=== PATIENT | female | born 1970 | race Caucasian/White ===

== ENCOUNTER 2024-01-04 12:13 | Emergency (ER) | payer OTHER, BC, SELFPAY ==
[2024-01-04 12:20] VITALS: BP 126/91
--- NOTE | 2024-01-04 12:38 | ED.GENMED ---
History of Present Illness
General
Chief Complaint: Fall
Source: patient
Time Seen by Provider: 01/04/24 12:28
History of Present Illness
History of Present Illness:
53yoF with a history of hypertension, hyperlipidemia, and thoracic aortic aneurysm being monitored presenting for evaluation after a head injury 3 days ago. Patient was walking her dog when her dog pulled her causing her to fall forward. She struck
her head against the road. She is unsure if she lost consciousness. Patient had a nose bleed afterwards that self resolved. She had vomiting immediately after the incident but has not had any further vomiting in the past 2 days. She reports ongoing
headaches, photophobia, trouble focusing, and overall 'not feeling right.' She has been taking Tylenol for her headaches and her headache is currently a 3/10 in severity. She also has right hand pain. She denies any history of head injuries in the
past.
Past History
Past History
ED Past Medical History: Psychiatric and Other (Aortic regurgitation, rheumatoid arthritis, thoracic aortic aneurym 4.5 cm)
ED Past Surgical History: None
Social History
Tobacco: Non-smoker
Personal:
Living: with family
Employment: Employed
Phy Exam
Physical Exam
Physical Exam:
Mild abrasion to bridge of nose. No epistaxis or septal hematoma. No nasal or facial tenderness. No external signs of head trauma. No cervical spine tenderness with full ROM. Multiple abrasions of R hand/wrist noted. ROM intact. No deformity. No
snuffbox tenderness. 2+ radial pulse.
General Physical Exam
General Presentation: well appearing and no apparent distress
General age: appears stated age
General Skin: warm and dry
General Habitus: normal
General Mental: alert
Eye Exam
Eye Exam: PERRL
Cardiovascular Exam
Cardiovascular Exam: regular rate/rhythm and no murmur
Pulmonary Exam
Pulmonary Exam: lungs clear, no respiratory distress, no crackles and no wheezing
Gastrointestinal Exam
Gastrointestinal Exam: non tender, soft and non distended
Neurological Exam
Neurological Exam: alert and no motor deficits
[place] Coma Scale
Eye Opening: Spontaneous
Verbal Response: Oriented
Motor Response: Obeys Commands
GCS Total Score: 15
Course
Orders/Labs/Results
Orders:
Orders
01/04/24 12:37
CT Head W/o Iv Contrast Urgent
Comment:
Reason For Exam: Fall with head strike, unknown LOC
Tetanus/Diphth/Acelpertussis [Adacel] 0.5 ml IM .ONCE ONE
Hand, Right 3 View [CR Hand - Right Min 3 Views] Urgent
Comment:
Reason For Exam: R hand pain, injury
Wrist, Right 3 Views [CR Wrist - Right Min 3 Views] Urgent
Comment:
Reason For Exam: R wrist pain, injury
Vital Signs
Initial and Last Documented VS:
Initial Vital Signs
Temp Pulse Resp BP Pulse Ox
98.8 F 98 16 126/91 96
01/04/24 12:20 01/04/24 12:20 01/04/24 12:20 01/04/24 12:20 01/04/24 12:20
Last Documented Vital Signs
Temp Pulse Resp BP Pulse Ox
98.8 F 98 16 126/91 96
01/04/24 12:20 01/04/24 12:20 01/04/24 12:20 01/04/24 12:20 01/04/24 12:20
MDM/Problems Addressed
Differential Diagnosis Includes:
53yoF presenting after a head injury 3 days ago after a mechanical fall. Unknown LOC. C/o ongoing headaches, fatigue, difficulty focusing. Also having R hand pain. She is afebrile and hemodynamically stable. She is well appearing in no distress.
There is a minor abrasion to the bridge of her nose but otherwise no external signs of head trauma. Cervical spine cleared via NEXUS criteria. R hand abrasions noted. Differential diagnosis includes but is not limited to: closed head injury,
concussion, intracranial hemorrhage, skull fracture
Initial ED plan: Check right hand/wrist x-rays and CT head. Update Tdap.
*Critical Care Note
Total Time (30-74mins, 75-104mins- exclusive of procedures): Not Applicable
Update Note
Update Note:
CT head is negative for acute findings. Right hand and wrist x-rays are also negative. Patient stable for discharge. Supportive care discussed including hydration, rest, and avoidance of electronics. Advised f/u with PCP. ED return precautions
discussed. Patient discharged in stable condition.
ED Attending Note
-
Portions of this chart may have been created with voice recognition software.� Occasional wrong word or��sound alike� substitutions may have occurred due to the inherent limitations of voice recognition software.
Discharge Plan
Departure
Patient Disposition: Home (Routine Discharge)
Date of Disposition: 01/04/24
Time of Disposition: 14:01
Patient with high blood pressure during this ER visit?: No
Discharge Problem:
Closed head injury, Hand pain, right, Abrasions of multiple sites
Instructions: Concussion, Adult (DC)
Prescriptions:
No Action
atorvastatin 10 mg Tablet
10 mg PO DAILY
levothyroxine 50 mcg Tablet
50 mcg PO HS
losartan 25 mg Tablet
25 mg PO DAILY
acetaminophen [Tylenol] 325 mg Tablet
650 mg PO Q6H PRN (Reason: mild pain)
Fleet Enema 19-7 gram/118 mL Enema
[address] DAILY PRN (Reason: constipation)
Menopause Supplement 400 mcg Tablet
1 tab PO DAILY
Referrals:
Amalia Starks PA-C [Family Provider] -
Activity Restrictions/Additional Instructions:
Drink plenty of fluids and rest. Avoid electronics. Take Tylenol as needed for headaches.
Please follow-up with your family doctor. Return to the ER with any new or worsening symptoms.
Interventions
Interventions:
*Risk Screen - Suicide Last Done: 01/04/24 12:20
*General Assessment Last Done: 01/04/24 12:20
*Neglect/Abuse Screening Last Done: 01/04/24 12:20
*ED COVID-19 Vaccine History Last Done: 01/04/24 12:20
ED-Musculoskeletal Assessment Last Done: 01/04/24 13:06
ED- Neurological Assessment Last Done: 01/04/24 13:04
Discharge Date and Time
Print Language: ANDORRAN
[2024-01-04 13:04] VITALS: BMI 24.2
[2024-01-04] MEDS: ADACEL 0.5 ML IM (14:41)
[2024-01-04 15:30] VITALS: BP 113/71
== END 2024-01-04 16:14 | disposition home or self-care (01) ==
LOC: EMR 12:13
PROVIDERS: EMERGENCY PHYSICIAN Emergency Medicine; FAMILY PHYSICIAN Physician Assistant Medical
DX: S09.90XA Unspecified injury of head, initial encounter (principal); S00.31XA Abrasion of nose, initial encounter; M79.641 Pain in right hand; W19.XXXA Unspecified fall, initial encounter; Y93.K1 Activity, walking an animal; Z23 Encounter for immunization; M06.9 Rheumatoid arthritis, unspecified; E78.00 Pure hypercholesterolemia, unspecified; I10 Essential (primary) hypertension; Z86.79 Personal history of other diseases of the circulatory system
CPT/HCPCS: 99284; 90471; 70450; 73110; 73130; 90715

== ENCOUNTER 2024-03-15 09:15 | Emergency (ER) | payer OTHER, BC, SELFPAY ==
[2024-03-15 09:17] VITALS: BP 144/88
--- NOTE | 2024-03-15 09:42 | ED.GENMED ---
History of Present Illness
General
Chief Complaint: Rectal Bleeding
Source: patient
Time Seen by Provider: 03/15/24 09:25
History of Present Illness
History of Present Illness:
53-year-old female with past medical history of thoracic aortic aneurysm presenting to the emergency department for evaluation after awakening around 1 AM with nausea and vomiting as well as diarrhea, noticed some small blood in her stool, woke up
again around 7 AM with continued lower abdominal cramping and went to bathroom again and noticed bright red blood within the toilet with no other stool. Patient states that present time she just feels very shaky but otherwise the abdominal
pain/cramping and nausea have subsided. Patient denies any fevers, chills, rigors. She notes that eat anything out of the ordinary yesterday, denies any recent travel or known sick contacts. Denies any history of similar. Has never had
colonoscopy. No family history of GI related medical history or cancers.
Past History
Past History
ED Past Medical History: Psychiatric and Other (Aortic regurgitation, rheumatoid arthritis, thoracic aortic aneurym 4.5 cm)
ED Past Surgical History: None
Social History
Tobacco: Non-smoker
Alcohol: Daily (2 whiskey drinks daily)
Drug: None
Personal:
Living: with family
Employment: Employed
Review of Systems
Review of Systems
All Other Systems: ROS reviewed and negative except as documented in HPI and ROS
Phy Exam
Physical Exam
Physical Exam:
GENERAL: Alert , in no apparent distress
EYE: clear conjunctiva b/l
HEAD: NCAT
ENT: mmm.
CARDIAC: Regular rate and rhythm .
LUNGS: Clear breath sounds bilaterally, no acute respiratory distress, no wheezes/rales/rhonchi
ABDOMEN: Soft, without focal tenderness, no r/g, no cvat
RECTAL: Chaperoned by ED RN Carly, light brown stool, small streak of blood on glove, no external hemorrhoids appreciated
NEUROLOGICAL: Alert and oriented
SKIN: Warm and dry, skin intact.
MUSCULOSKELETAL: well perfused.
PSYCH: Normal and appropriate interaction.
Scores
Heart Failure Risk
Heart Failure Risk Score: Not Applicable
Heart Score for Chest Pain Patients
STEMI patient?: Not applicable
Withdrawal Assessment of Alcohol
Withdrawal Assessment Completed?: Not applicable
Course
Orders/Labs/Results
Orders:
Orders
03/15/24 09:40
CT Abd/pel W Iv And Oral Contr Urgent
Comment:
Reason For Exam: lower abd pain, hematochezia
Iohexol [Omnipaque] See Protocol PO NOW STA
03/15/24 09:53
Type+Screen Urgent
Complete Blood Count/With Diff Urgent
Comprehensive Metabolic Panel Urgent
Lipase Urgent
03/15/24 09:54
0.9% Sodium Chloride 1000 ml [Nss] 1,000 ml IV BOLUS
Ondansetron Injectable [Zofran] 4 mg IV NOW STA
03/15/24 09:55
Ondansetron Injectable [Zofran] 4 mg .ROUTE .STK-MED ONE
Abnormal Lab Results
03/15/24
09:53
RBC 3.27 L 10^6/uL
(4.20-5.40)
Hgb 11.8 L g/dL
(12.0-16.0)
Hct 33.3 L %
(37.0-47.0)
MCV 101.8 H fL
(81.0-99.0)
MCH 36.1 H pg
(27.0-31.0)
Absolute Lymphs (auto) 0.8 L 10^3/uL
(1.2-3.4)
Neutrophils % 83.0 H %
(42.2-75.2)
Lymphocytes % 10.3 L %
(20.5-51.1)
Potassium 3.4 L mmol/L
(3.5-5.1)
Chloride 94 L mmol/L
(98-107)
AST 128 H U/L
(14-36)
ALT 121 H U/L
(0-35)
03/15/24 09:53
03/15/24 09:53
Vital Signs
Initial and Last Documented VS:
Initial Vital Signs
Temp Pulse Resp BP Pulse Ox
98.6 F 94 16 144/88 98
03/15/24 09:17 03/15/24 09:17 03/15/24 09:17 03/15/24 09:17 03/15/24 09:17
Last Documented Vital Signs
Temp Pulse Resp BP Pulse Ox
98.6 F 94 16 144/88 98
03/15/24 09:17 03/15/24 09:17 03/15/24 09:17 03/15/24 09:17 03/15/24 09:17
MDM/Problems Addressed
Differential Diagnosis Includes:
hemorrhoidal bleeding, diverticular bleed, malignancy, infectious diarrhea
MDM/Problems Addressed:
3-year-old female presenting to the emergency department for evaluation of hematochezia. Initially this morning had lower abdominal cramping with nausea and vomiting as well however the symptoms have since subsided. Patient's abdominal exam
reassuring. Rectal exam shows small light brown stool with a streak of blood on glove. I suspect hemorrhoidal bleeding is the most likely cause. Patient notes that since she had a concussion a few months ago she has also noticed some constipation
and will often strain while having bowel movement. I do suspect a little bleeding is the most likely diagnosis. Patient has never had colonoscopy or abdominal imaging so will obtain CT scan to evaluate for possible diverticulum. Patient does have
2 alcoholic beverages daily but I doubt upper GI bleeding. Denies frequent NSAID use. Patient is otherwise hemodynamically stable. Labs and CT imaging ordered. Reassessment following.
*Radiology
Radiology exam reviewed: radiology read reviewed
*Pulse Oximetry
Patient hypoxic: no
*Critical Care Note
Total Time (30-74mins, 75-104mins- exclusive of procedures): Not Applicable
Patient Management
Escalation/DeEscalation of care consider admission/obs:
Patient CT scan shows questionable colitis. She is afebrile, no leukocytosis and pain is well-controlled. I still question possibility of internal hemorrhoidal bleeding. Patient strongly encouraged to make appointment with GI and I provided
information for the patient to contact. Advised on return precautions to the ER. Patient will also follow-up with primary care provider. Stable for discharge home and aware of return precautions.
ED Attending Note
-
Portions of this chart may have been created with voice recognition software.� Occasional wrong word or��sound alike� substitutions may have occurred due to the inherent limitations of voice recognition software.
Discharge Plan
Departure
Patient Disposition: Home (Routine Discharge)
Date of Disposition: 03/15/24
Time of Disposition: 12:45
Patient with high blood pressure during this ER visit?: Yes
Discharge Problem:
Abdominal pain, GI bleeding
Instructions: Hemorrhoids (DC)
Prescriptions:
New
ondansetron 4 mg tablet,disintegrating
4 mg PO TIDPRN PRN (Reason: nausea/vomiting) Qty: 8 0RF
hydrocortisone acetate [Anusol-HC] 25 mg suppository
25 mg NC DAILY Qty: 24 0RF
No Action
atorvastatin 10 mg Tablet
10 mg PO DAILY
losartan 25 mg Tablet
25 mg PO DAILY
acetaminophen [Tylenol] 325 mg Tablet
650 mg PO Q6HPRN PRN (Reason: headachs)
bisacodyl [Fleet Bisacodyl] 10 mg Suppository
10 mg NC DAILYPRN PRN (Reason: constipation)
hydrochlorothiazide 12.5 mg Tablet
12.5 mg PO DAILY
Referrals:
Roddy Arvizu MD [Family Provider] -
Latisha Weaver MD [Active] - (GI - Please call for appointment)
Interventions
Interventions:
*Risk Screen - Suicide Last Done: 03/15/24 09:17
*General Assessment Last Done: 03/15/24 10:05
*Neglect/Abuse Screening Last Done: 03/15/24 09:17
*ED COVID-19 Vaccine History Last Done: 03/15/24 10:05
*Nursing Disposition Last Done: 03/15/24 12:53
IB-Ubcaxb-Hkawvtpyeu Assessment Last Done: 03/15/24 10:05
ED- Cardiac Assessment Last Done: 03/15/24 10:05
ED- Pulmonary Assessment Last Done: 03/15/24 10:05
Discharge Date and Time
Discharge Date/Time: 03/15/24 12:54
Print Language: DOMINICAN
[2024-03-15] MEDS: OMNIPAQUE 50 ML PO (09:48)
[2024-03-15] MEDS: ZOFRAN 4 MG IV (09:56)
[2024-03-15] MEDS: NSS 1000 IV (09:57)
[2024-03-15 10:02] VITALS: BMI 23.5
[2024-03-15 10:03] LABS: % Basophils 0.9 % (0-2); % Eosinophils 0.1 % (0-6); % Immature Granulocytes 0.4 % (0-0.5); % Lymphocytes 10.3 % (20.5-51.1); % Monocytes 5.3 % (1.7-9.3); Absolute Basophils 0.1 10^3/uL (0-0.2); Absolute Lymphocytes 0.8 10^3/uL (1.2-3.4); Absolute Monocytes 0.4 10^3/uL (0.1-0.6); Absolute Neutrophils 6.3 10^3/uL (1.4-6.5); Hematocrit 33.3 % (37.0-47.0); Hemoglobin 11.8 g/dL (12.0-16.0); Mean Corp Hgb Conc. 35.4 g/dL (33.0-37.0); Mean Corpuscular Hgb 36.1 pg (27.0-31.0); Mean Corpuscular Volume 101.8 fL (81.0-99.0); Nucleated Red Blood Cells % 0 %; Platelet Count 201 10^3/uL (130-400); Red Blood Cell Count 3.27 10^6/uL (4.20-5.40); White Blood Cell Count 7.6 10^3/uL (4.8-10.8)
[2024-03-15 10:20] LABS: ALT (SGPT) 121 U/L (0-35); AST (SGOT) 128 U/L (14-36); Albumin 4.5 g/dl (3.5-5.0); Alkaline Phosphatase 91 U/L (38-126); Blood Urea Nitrogen 12 mg/dl (7-17); Calcium 9.1 mg/dl (8.4-10.2); Carbon Dioxide 23 mmol/L (22-30); Chloride 94 mmol/L (98-107); Estimated Creatinine Clearance 90 ml/min; Glucose 78 mg/dl (70-99); Potassium 3.4 mmol/L (3.5-5.1); Sodium 138 mmol/L (135-145); Total Bilirubin 1.1 mg/dl (0.2-1.3); Total Protein 7.1 g/dl (6.3-8.2); eGFR > 60.00
[2024-03-15 11:07] LABS: Lipase 94 U/L (23-300)
== END 2024-03-15 12:54 | disposition home or self-care (01) ==
LOC: EMR 09:15
PROVIDERS: Physician Assistant Medical; EMERGENCY PHYSICIAN Emergency Medicine; FAMILY PHYSICIAN Internal Medicine
DX: R10.9 Unspecified abdominal pain (principal); K92.2 Gastrointestinal hemorrhage, unspecified; I35.1 Nonrheumatic aortic (valve) insufficiency; M06.9 Rheumatoid arthritis, unspecified
CPT/HCPCS: 99284; 96374; 96361; 74177; 80053; 83690; 85025; 86850; 86900; 86901; Q9967

== ENCOUNTER 2024-05-09 22:31 | Observation (INO) | payer BC, SELFPAY ==
[2024-05-09 18:02] VITALS: BP 129/78
[2024-05-09 18:44] VITALS: BP 128/91
[2024-05-09 19:00] VITALS: BP 113/77
[2024-05-09 19:07] LABS: ALT (SGPT) 108 U/L (0-35); AST (SGOT) 271 U/L (14-36); Albumin 4.5 g/dl (3.5-5.0); Alkaline Phosphatase 104 U/L (38-126); Blood Urea Nitrogen 11 mg/dl (7-17); Calcium 8.6 mg/dl (8.4-10.2); Carbon Dioxide 32 mmol/L (22-30); Chloride 87 mmol/L (98-107); Glucose 109 mg/dl (70-99); Sodium 133 mmol/L (135-145); Total Bilirubin 1.1 mg/dl (0.2-1.3); Total Protein 7.6 g/dl (6.3-8.2); eGFR > 60.00
--- NOTE | 2024-05-09 19:07 | ED.GENMED ---
History of Present Illness
<Aury Bailey PA-C - Last Filed: 05/09/24 22:31>
General
Chief Complaint: Abdominal Symptoms
Source: patient
Exam Limitations: none
Time Seen by Provider: 05/09/24 18:21
Nursing documentation reviewed up to this point in time: agreed with
History of Present Illness
History of Present Illness:
Patient is a 53-year-old female with history of thoracic aortic aneurysm, hypertension, hyperlipidemia presenting to the emergency department with 12 days of nausea, vomiting, diarrhea. 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
similar symptoms. Patient reports diarrhea has somewhat slowed down although nausea and vomiting have persisted. Patient does report abdominal discomfort worse after eating.
Patient denies any fever, chills, chest pain, shortness of breath, urinary symptoms.
Patient was given Zofran by her family doctor although she states that it makes her feel 'weird '
Patient followed by Dr. Arvizu with [facility] cardiology with frequent monitoring of thoracic aortic aneurysm.
Past History
<Aury Bailey PA-C - Last Filed: 05/09/24 22:31>
Past History
ED Past Medical History: Psychiatric and Other (Aortic regurgitation, rheumatoid arthritis, thoracic aortic aneurym 4.5 cm)
ED Past Surgical History: None
Social History
Tobacco: Non-smoker
Alcohol: Daily (2 whiskey drinks daily)
Drug: None
Personal:
Living: with family
Employment: Employed
Review of Systems
<Aury Bailey PA-C - Last Filed: 05/09/24 22:31>
Review of Systems
Allergies reviewed?: Yes
All Other Systems: ROS reviewed and negative except as documented in HPI and ROS
Phy Exam
<Aury Bailey PA-C - Last Filed: 05/09/24 22:31>
Physical Exam
Physical Exam:
Vitals: Patient's vital signs are stable. Afebrile
General: Patient is well appearing, no acute distress. Nontoxic appearing
Skin: Warm and dry, no rashes or lesions
Head: Normocephalic, atraumatic
Eyes: Sclera nonicteric. EOMs intact. No nystagmus.
Throat: Dry mucous membranes. Protecting airway
Neck: Normal ROM, no cervical spine tenderness, no meningismus
Cardiac: Regular rate and rhythm, no murmurs. Equal distal pulses.
Pulm: Normal respiratory effort, no wheezes, rales, rhonchi heard on exam.
Abdomen: Abdomen soft. Mild right upper quadrant abdominal tenderness without rebound tenderness or guarding. No CVA tenderness.
Extremities: No evidence of cyanosis or edema. Palpable DP pulses bilaterally
Neuro: AAOx3. Grossly intact.
Psychiatric: Normal affect.
Course
<Aury Bailey PA-C - Last Filed: 05/09/24 22:31>
Orders/Labs/Results
Orders:
Orders
05/09/24 18:41
CBC/With Diff [Complete Blood Count/With Diff] Urgent
CMP [Comprehensive Metabolic Panel] Urgent
Lipase Urgent
Comment: ADD ON
Urinalysis Reflex To Culture Urgent
Date Specimen was Collected: 05/09/24
Time Specimen was Collected: 18:32
Urine Microscopic Reflex Cult Urgent
05/09/24 18:53
Add On- LAB Urgent
Tests Added?: lipase
05/09/24 18:58
0.9% Sodium Chloride 1000 ml [Nss] 1,000 ml IV BOLUS
Ondansetron Injectable [Zofran] 4 mg IV NOW STA
US Abdomen Complete/Upper Urgent
Comment:
Reason For Exam: Nasuea, vomiting, RUQ tenderness
05/09/24 20:02
Potassium Chloride [KCl] 40 meq PO NOW STA
05/09/24 21:29
Stool Culture Urgent
KAYLI Source: Feces/Stool
Specimen Description:
Date Specimen was Collected: 05/09/24
Time Specimen was Collected: 21:26
05/09/24 21:55
Pantoprazole [Protonix IV] 80 mg IV NOW STA
Sucralfate [Carafate] 1 gram PO NOW STA
05/09/24 22:00
Pantoprazole 80 mg/100 ml Nss [Protonix] 80 mg in 100 ml IV Q10H
05/09/24 22:20
Add On - Microbiology Routine
Tests Added?: stool norovirus
05/09/24 22:21
Add On- LAB Routine
Tests Added?: stool wbc
Admit/Transfer Patient As Directed
Co-Sign Provider:
Level of Care: Observation services
Assign to:: Medical/Surgical
Physician / Group: Rody
Diagnosis: Gastroenteritis
05/09/24 22:22
Sucralfate Suspension [Carafate Suspension] 1 gm PO NOW STA
PRN Pain Medication Management As Directed
May give lesser potent ordered pain med per pt: Yes
preference::
Protocol:: Medication orders for pain may be administered in a
manner that supports deferring to patient preference
when the pt is:
- Requesting an ordered lesser potent pain medication.
Least to most potent pain medications are defined
as: acetaminophen < NSAID < tramadol < opioids
(morphine, oxycodone, hydromorphone).
- Requesting a lesser dose of the same medication IF
ORDERED.
- Requesting a less intrusive route of administration
if both routes are prescribed by the provider (PO <
IV).
05/09/24 22:23
Code Status As Directed
Resuscitation Status: Full Code
05/09/24 23:52
Ondansetron Injectable [Zofran] 4 mg IV Q6HPRN PRN
Abnormal Lab Results
05/09/24
18:41
WBC 4.0 L 10^3/uL
(4.8-10.8)
RBC 3.68 L 10^6/uL
(4.20-5.40)
Hct 35.6 L %
(37.0-47.0)
MCH 35.6 H pg
(27.0-31.0)
Sodium 133 L mmol/L
(135-145)
Potassium 3.0 L mmol/L
(3.5-5.1)
Chloride 87 L mmol/L
(98-107)
Carbon Dioxide 32 H mmol/L
(22-30)
Glucose 109 H mg/dl
(70-99)
AST 271 H U/L
(14-36)
ALT 108 H U/L
(0-35)
Ur Occult Blood Reflex 1+ A
(Negative)
05/09/24 18:41
05/09/24 18:41
Vital Signs
Initial and Last Documented VS:
Initial Vital Signs
Temp Pulse Resp BP Pulse Ox
98.4 F 72 16 129/78 98
05/09/24 18:02 05/09/24 18:02 05/09/24 18:02 05/09/24 18:02 05/09/24 18:02
Last Documented Vital Signs
Temp Pulse Resp BP Pulse Ox
98.4 F 69 10 108/84 96
05/09/24 18:02 05/09/24 23:30 05/09/24 23:30 05/09/24 22:26 05/09/24 22:30
Mirelalt;Kd Forte DO - Last Filed: 05/10/24 00:04>
Orders/Labs/Results
Orders:
Orders
05/09/24 18:41
CBC/With Diff [Complete Blood Count/With Diff] Urgent
CMP [Comprehensive Metabolic Panel] Urgent
Lipase Urgent
Comment: ADD ON
Urinalysis Reflex To Culture Urgent
Date Specimen was Collected: 05/09/24
Time Specimen was Collected: 18:32
Urine Microscopic Reflex Cult Urgent
05/09/24 18:53
Add On- LAB Urgent
Tests Added?: lipase
05/09/24 18:58
0.9% Sodium Chloride 1000 ml [Nss] 1,000 ml IV BOLUS
Ondansetron Injectable [Zofran] 4 mg IV NOW STA
US Abdomen Complete/Upper Urgent
Comment:
Reason For Exam: Nasuea, vomiting, RUQ tenderness
05/09/24 20:02
Potassium Chloride [KCl] 40 meq PO NOW STA
05/09/24 21:29
Stool Culture Urgent
KAYLI Source: Feces/Stool
Specimen Description:
Date Specimen was Collected: 05/09/24
Time Specimen was Collected: 21:26
05/09/24 21:55
Pantoprazole [Protonix IV] 80 mg IV NOW STA
Sucralfate [Carafate] 1 gram PO NOW STA
05/09/24 22:00
Pantoprazole 80 mg/100 ml Nss [Protonix] 80 mg in 100 ml IV Q10H
05/09/24 22:20
Add On - Microbiology Routine
Tests Added?: stool norovirus
05/09/24 22:21
Add On- LAB Routine
Tests Added?: stool wbc
Admit/Transfer Patient As Directed
Co-Sign Provider:
Level of Care: Observation services
Assign to:: Medical/Surgical
Physician / Group: Rody
Diagnosis: Gastroenteritis
05/09/24 22:22
Sucralfate Suspension [Carafate Suspension] 1 gm PO NOW STA
PRN Pain Medication Management As Directed
May give lesser potent ordered pain med per pt: Yes
preference::
Protocol:: Medication orders for pain may be administered in a
manner that supports deferring to patient preference
when the pt is:
- Requesting an ordered lesser potent pain medication.
Least to most potent pain medications are defined
as: acetaminophen < NSAID < tramadol < opioids
(morphine, oxycodone, hydromorphone).
- Requesting a lesser dose of the same medication IF
ORDERED.
- Requesting a less intrusive route of administration
if both routes are prescribed by the provider (PO <
IV).
05/09/24 22:23
Code Status As Directed
Resuscitation Status: Full Code
05/09/24 23:52
Ondansetron Injectable [Zofran] 4 mg IV Q6HPRN PRN
Abnormal Lab Results
05/09/24
18:41
WBC 4.0 L 10^3/uL
(4.8-10.8)
RBC 3.68 L 10^6/uL
(4.20-5.40)
Hct 35.6 L %
(37.0-47.0)
MCH 35.6 H pg
(27.0-31.0)
Sodium 133 L mmol/L
(135-145)
Potassium 3.0 L mmol/L
(3.5-5.1)
Chloride 87 L mmol/L
(98-107)
Carbon Dioxide 32 H mmol/L
(22-30)
Glucose 109 H mg/dl
(70-99)
AST 271 H U/L
(14-36)
ALT 108 H U/L
(0-35)
Ur Occult Blood Reflex 1+ A
(Negative)
05/09/24 18:41
05/09/24 18:41
Vital Signs
Initial and Last Documented VS:
Initial Vital Signs
Temp Pulse Resp BP Pulse Ox
98.4 F 72 16 129/78 98
05/09/24 18:02 05/09/24 18:02 05/09/24 18:02 05/09/24 18:02 05/09/24 18:02
Last Documented Vital Signs
Temp Pulse Resp BP Pulse Ox
98.4 F 69 10 108/84 96
05/09/24 18:02 05/09/24 23:30 05/09/24 23:30 05/09/24 22:26 05/09/24 22:30
<Aury Bailey PA-C - Last Filed: 05/09/24 22:31>
MDM/Problems Addressed
Differential Diagnosis Includes:
Not limited to: Acute dehydration, viral gastroenteritis, biliary colic, cholecystitis, pancreatitis
MDM/Problems Addressed:
53-year-old female presenting with 12 days of intractable nausea/vomiting and diarrhea. Also with intermittent abdominal pain after eating, tolerating very little p.o. intake. No fever, chills, urinary symptoms. No hematochezia or melena. Vital
stable. Patient is afebrile. Exam as above. Patient nontoxic-appearing. She does have dry mucous membranes. Abdomen is soft with some mild tenderness in right upper quadrant. Cardio/pulmonary assessment unremarkable. Patient is perfusing well
with palpable and equal distal pulses in bilateral upper and lower extremities. Symptoms seem consistent with a viral gastroenteritis although considering duration of symptoms�concern for acute dehydration versus electrolyte abnormalities. Other
considerations include gastritis, gastric ulcer, cholecystitis. Patient has past history of appendectomy. Will check basic labs, urine and obtain ultrasound of abdomen. Will give liter of fluids and IV Zofran.
Labs reviewed. Mild leukopenia which does appear to be chronic per patient. Patient has a hypochloremic metabolic alkalosis likely secondary to vomiting and GI losses. Also found to be hypokalemic with a potassium of 3�which was repleted with 40
of p.o. potassium. Lipase is normal. Urine does not appear infected. Abdominal ultrasound without any acute findings. Will p.o. challenge patient and reassess
Chronic conditions affecting care:
N/A
Acute Exacerbation and/or Progression of Chronic Illness:
N/A
<Aury Bailey PA-C - Last Filed: 05/09/24 22:31>
*Radiology
Radiology exam reviewed: preliminary read by ED provider and radiology read reviewed
*Pulse Oximetry
Patient hypoxic: no
*EKG
Interpreted by ED Provider?: NA
*Marketing Executive Interpretation
Rate: Marketing Executive- N/A
*Critical Care Note
Total Time (30-74mins, 75-104mins- exclusive of procedures): Not Applicable
Data Reviewed
Review of Other/Old Records Reveals: Radiology Studies (CT scan from 03/15/2024 without acute findings)
<Aury Bailey PA-C - Last Filed: 05/09/24 22:31>
Update Note
Update Note:
Update 9:58 PM: Patient with significant abdominal pain, diarrhea and nausea following p.o. challenge. Given patient's intractable nausea/vomiting with abdominal pain and inability to tolerate p.o. intake�will admit patient. Suspect likely a
gastritis�may benefit from endoscopy while inpatient given persistence/duration of symptoms. Will start patient on Protonix drip and give Carafate. Discussed with patient was agreeable to admission. Patient admitted to hospitalist service in
stable condition.
ED Attending Note
<Aury Bailey PA-C - Last Filed: 05/09/24 22:31>
-
Portions of this chart may have been created with voice recognition software.� Occasional wrong word or��sound alike� substitutions may have occurred due to the inherent limitations of voice recognition software.
<Kd Forte DO - Last Filed: 05/10/24 00:04>
ED Attending Note
Patient seen and examined by attending physician: Yes
I performed the substantive portion of visit, reviewed & personally made and approve the management plan that is documented in note by myself or ROMAN.: Yes
ED Attending Note:
Patient is a 53-year-old female who presents with an almost 2-week history of nausea vomiting diarrhea. Started with diarrhea and nausea. then progressed progressed to nausea and vomiting with decreasing diarrhea. Every time patient ate she would
develop severe pain. Patient tried occasional dose of Protonix without improvement. Diarrhea has improved but the nausea and vomiting and pain remain especially postprandial. Patient denies fever or chills. Patient denies chest pain or shortness
of breath. Patient denies any melena or hematochezia. Patient on physical exam does appear to be in mild to moderate distress. Patient has mildly dry mucous membranes. Heart is regular lungs are clear. Abdomen tender in the midepigastric
region. Patient was given Zofran without much improvement. Patient does have thoracic aortic aneurysm that is followed by cardiology and has been stable. 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 Both the patient's
employer and the grandmother of the child developed similar symptoms but resolved after couple days. Patient continues to have symptoms. Patient's potassium is low consistent with the diarrhea. Patient's ultrasound was unremarkable for anything
responsible for the patient's pain and nausea or vomiting. Because the patient continues to have intractable vomiting as well as midepigastric pain patient was admitted. Patient will need to be treated for gastritis/ulcer.
Discharge Plan
Departure
Patient Disposition: Admit
Date of Disposition: 05/09/24
Time of Disposition: 21:56
Presentation/result/management discussed w/ accepting MD/DO: Hospitalist
Discharge Problem:
Intractable nausea and vomiting, Gastritis
Interventions
Interventions:
*Risk Screen - Suicide Last Done: 05/09/24 20:30
*General Assessment Last Done: 05/09/24 22:23
*Neglect/Abuse Screening Last Done: 05/09/24 20:30
ED- Fall Risk Assessment Last Done: 05/09/24 19:13
*ED COVID-19 Vaccine History Last Done: 05/09/24 19:45
FV-Ovmskk-Tpfpmorpgn Assessment Last Done: 05/09/24 19:13
[2024-05-09] MEDS: NSS 1000 IV (19:08)
[2024-05-09] MEDS: ZOFRAN 4 MG IV ×2 (19:08→23:57)
[2024-05-09 19:15] LABS: Urine Albumin Negative (Neg - Trace); Urine Bilirubin Negative (Negative); Urine Character Clear (Clear); Urine Color Yellow; Urine Glucose Negative (Negative); Urine Ketone Negative (Negative); Urine Leukocyte Negative (Negative); Urine Nitrite Negative (Negative); Urine Occult Blood 1+ (Negative); Urine Urobilinogen Negative (Neg - 1+)
[2024-05-09 19:16] LABS: Lipase 196 U/L (23-300)
[2024-05-09 19:26] LABS: % Basophils 1.2 % (0-2); % Eosinophils 0.5 % (0-6); % Lymphocytes 46.4 % (20.5-51.1); % Monocytes 6.5 % (1.7-9.3); % Neutrophils 45.4 % (42.2-75.2); Absolute Basophils 0.1 10^3/uL (0-0.2); Absolute Lymphocytes 1.9 10^3/uL (1.2-3.4); Absolute Monocytes 0.3 10^3/uL (0.1-0.6); Absolute Neutrophils 1.8 10^3/uL (1.4-6.5); Hematocrit 35.6 % (37.0-47.0); Hemoglobin 13.1 g/dL (12.0-16.0); Mean Corp Hgb Conc. 36.8 g/dL (33.0-37.0); Mean Corpuscular Hgb 35.6 pg (27.0-31.0); Mean Corpuscular Volume 96.7 fL (81.0-99.0); Mean Platelet Volume 9.3 fL (7.4-10.4); Nucleated Red Blood Cells % 0 %; Platelet Count 201 10^3/uL (130-400); Red Blood Cell Count 3.68 10^6/uL (4.20-5.40); Red Cell Dist. Width 11.9 % (11.5-14.5)
[2024-05-09 19:29] LABS: Urine Red Blood Cell 0-2 /HPF (0-2); Urine White Cell 0-2 /HPF (0-5)
[2024-05-09 19:38] VITALS: BP 113/67
[2024-05-09 20:00] VITALS: BP 120/66
[2024-05-09] MEDS: KCL 40 MEQ PO (20:14)
[2024-05-09] MEDS: PROTONIX IV 80 MG IV (22:17)
[2024-05-09 22:23] VITALS: BMI 24.2
[2024-05-09] MEDS: CARAFATE SUSPENSION 1 GM PO (22:24)
--- NOTE | 2024-05-09 22:25 | HPS.HSE ---
Family Physician
-
Family Physician: Adenike Clay
Chief Complaint
-
Nausea, Vomiting and Diarrhea
History of Present Illness
Patient is a 53 y/o female past medical history of hypertention, and hyperlipidemia who presents with nausea, vomiting and diarrhea. Patient reports ongoing symptoms for about 12 days. She has only been able to keep down some ruma benjamin and
Gatorade, and small amount of toast over the last week. She reports abdominal cramping which triggers both vomiting and diarrhea. She denies other abdominal pain. She denies recorded fevers. She is a nanny for an infant, and notes the baby as
well as the baby's mother also had a similar prolonged GI illness.
Medical History
Past Medical History
Past Medical History: Reports Other
Additional Past Medical History:
Essential Hypertension
Hyperlipidemia
Past Surgical History: Reports Other
Additional Past Surgical History:
Appendectomy
Breast Augmentation
Tubal Ligation
Social History
Tobacco: Non-smoker
Alcohol: Occasional
Drug: None
Family History
Family History: Not pertinent
Allergies / Home Medications
Allergies reflects when Allergies were last updated in [facility].
Home Medications with original date entered in [facility]
Allergy/Medication List:
Allergies
Allergy/AdvReac Type Severity Reaction Status Date / Time
amoxicillin Allergy Hives Verified 05/09/24 19:13
Cephalosporins Allergy Unknown Verified 05/09/24 19:13
Penicillins Allergy Unknown Verified 05/09/24 19:13
Home Medications
acetaminophen 325 mg tablet (Tylenol) 650 mg PO Q6HPRN PRN headachs 01/23/23
atorvastatin 10 mg tablet 10 mg PO DAILY 01/23/23
losartan 25 mg tablet 25 mg PO DAILY 01/23/23
bisacodyl 10 mg rectal suppository 10 mg WA DAILYPRN PRN constipation 03/15/24
hydrochlorothiazide 12.5 mg tablet 12.5 mg PO DAILY 03/15/24
hydrocortisone acetate 25 mg rectal suppository (Anusol-HC) 25 mg WA DAILY #24 ea 03/15/24
ondansetron 4 mg disintegrating tablet 4 mg PO TIDPRN PRN nausea/vomiting #8 tabs 03/15/24
Review of Systems
-
A 12 point ROS was completed and negative except as noted: Yes
Constitutional: Denies Fever or Chills
Respiratory: Denies Cough or Trouble Breathing
Cardiac: Denies Chest Pain or Palpitations
Abdomen/GI: Reports See HPI
Physical Exam
Vital Signs
Vital Signs
Temp Pulse Resp BP Pulse Ox
98.4 F 65 16 120/66 96
05/09/24 18:02 05/09/24 21:05 05/09/24 21:05 05/09/24 20:00 05/09/24 21:45
Physical Exam
General: Comfortable and Conversant
HEENT: NormoCephalic, Anicteric and Atraumatic
Respiratory: Non Labored Respirations
Cardiac: S1/S2 and Regular Rhythm
GI: Soft, Non Tender and Non Distended
Rectal: Deferred by Provider
Musculoskeletal: No Clubbing, No Cyanosis and No Edema
Skin: Warm and Dry
Neuro: Awake, Alert, Oriented and Nonfocal/grossly intact
Psych: Calm
Laboratory Results
-
05/09/24 18:41
05/09/24 18:41
Laboratory Results
Total Bilirubin 1.1 mg/dl (0.2-1.3) 05/09/24 18:41
AST 271 U/L (14-36) H 05/09/24 18:41
ALT 108 U/L (0-35) H 05/09/24 18:41
Alkaline Phosphatase 104 U/L (38-126) 05/09/24 18:41
Lipase 196 U/L (23-300) 05/09/24 18:41
Data Reviewed
-
Lab Data: Labs Reviewed by me
Impression/Plan
-
Gastroenteritis, likely infectious given close contacts with similar symptoms
-Check stool studies including norovirus
-Allow clear liquid and advance slowly as tolerated
-Continue Zofran prn for nausea
Hyponatremia / Hypokalemia secondary to GI loses
-Continue IVFs
-Recheck labs in AM
Elevated AST/ALT - Appears chronic based on prior labs
-Abd US with evidence of hepatic steatosis
-Recheck in AM
Essential Hypertension
-Hold HCTZ
-Continue losartan with hold parameters
Hyperlipidemia
-Continue atorvastatin
DVT proph: Lovenox
Code Status: Full Code
[2024-05-09 22:26] VITALS: BP 108/84
--- NOTE | 2024-05-09 22:26 | W.PN.UPDATE ---
Update Note
Progress Note Update
Patient seen in conjunction with MARCUS. I agree with the findings on history and physical. I concur with the assessment and plan except as stated otherwise.
Briefly is a 52-year-old female was a past medical history significant for hyperlipidemia, hypertension who has a recent finding of possibly internal hemorrhoids presents to the emergency department for persistent ongoing nausea vomiting and
diarrhea for around 12 days. Patient reports sick contacts with a child in an with similar symptoms. Additional family members of these are contacts also had similar symptoms. Patient reports frequent watery stools but the frequency and
intensity has reduced more recently. She reports nonbilious and nonbloody emesis. She reports crampy abdominal pain with attempted bowel movement and often associated with worsening of her nausea. Patient reports prior appendectomy but no other
GI surgeries. She denies any history of inflammatory bowel disease. She denies any history of gastritis or GERD or peptic ulcer disease. She denies any hematochezia or melena. She stopped taking hydrochlorothiazide as she is unable to tolerate
p.o. She has not had any syncopal episodes.
9 Emergency Department patient was afebrile, blood pressure was stable at 120/60 with a pulse of 65. CBC was unremarkable. Electrolytes were notable for a sodium of 133 potassium 3.0 chloride of 87 and a bicarb of 32. BUN/creatinine were within
the normal range. She has slight elevation of AST and ALT lipase was normal. UA was unremarkable. She had a right upper quadrant ultrasound which showed hepatic steatosis but no gallstones or sludge or ductal dilatation.
Assessment:
Given history of sick contacts and combination of vomiting and diarrhea patient likely with viral gastroenteritis that is slowly recovering and has moderate to severe fluid losses with a combination of contraction alkalosis and gastric losses. She
has mild elevation in AST and ALT. Patient does endorses drinking whiskey but not regularly. She does likely has fatty liver disease secondary to alcohol versus nonalcoholic.
- admit to med/surg obs
- clear liquid diet and advance as tolerated
- stool culture and cdiff
- fluid and electrolyte repletions with K, IV NS
- antiemetics and pain control, trial of immodium if persistent diarrhea
- no indication for aggressive ppi.
- hold hctz, continue losartan.
- encourage etoh cessation, has f/u with GI pending and likely will get screening colo
DVT PPX - lovenox sq
Code status - Full Code
[2024-05-10 00:19] VITALS: BP 134/82; BMI 22.5
[2024-05-10] MEDS: NSS with KCL 20 MEQ 1000 IV ×2 (01:50→14:36)
--- NOTE | 2024-05-10 02:38 | PTCARENOTE ---
patient admitted to [place] [id number], oriented to room, call hurtado and poc. IVF NSS c 20meq KCL infusing at 100cc/hr. Admission assessment completed
[2024-05-10 07:00] VITALS: BP 136/77
[2024-05-10] MEDS: LIPITOR 10 MG PO (08:24)
[2024-05-10] MEDS: COZAAR 25 MG PO (08:25)
[2024-05-10] MEDS: ZOFRAN 4 MG IV ×2 (08:35→15:55)
[2024-05-10 09:23] LABS: ALT (SGPT) 93 U/L (0-35); Albumin 3.6 g/dl (3.5-5.0); Alkaline Phosphatase 82 U/L (38-126); Blood Urea Nitrogen 10 mg/dl (7-17); Carbon Dioxide 28 mmol/L (22-30); Chloride 102 mmol/L (98-107); Direct Bilirubin 0.3 mg/dl (0.0-0.4); Estimated Creatinine Clearance 77 ml/min; Glucose 82 mg/dl (70-99); Magnesium 1.7 mg/dl (1.6-2.3); Potassium 3.6 mmol/L (3.5-5.1); Sodium 140 mmol/L (135-145); Total Bilirubin 1.4 mg/dl (0.2-1.3); Total Protein 6.4 g/dl (6.3-8.2); eGFR > 60.00
[2024-05-10 09:32] LABS: AST (SGOT) 237 U/L (14-36); Calcium 7.6 mg/dl (8.4-10.2)
[2024-05-10 09:50] LABS: Hematocrit 31.4 % (37.0-47.0); Hemoglobin 11.2 g/dL (12.0-16.0); Mean Corp Hgb Conc. 35.7 g/dL (33.0-37.0); Mean Platelet Volume 9.7 fL (7.4-10.4); Platelet Count 154 10^3/uL (130-400); Red Blood Cell Count 3.11 10^6/uL (4.20-5.40); Red Cell Dist. Width 12.1 % (11.5-14.5); White Blood Cell Count 3.1 10^3/uL (4.8-10.8)
[2024-05-10] MEDS: OSCAL 500 + D 500 MG PO ×2 (10:24→19:56)
--- NOTE | 2024-05-10 11:44 | CM ---
manager video reviewed patient's chart and met with patient and patient was admitted under OBS, patient and spouse aware of OBS status. Patient lives with spouse in a one story home, patient is independent with adl's and ambulation, no dme, patient
drives, home when stable, no needs.
Plan; Home when stable, no needs.
--- NOTE | 2024-05-10 12:24 | W.PN.HOSP.TC ---
Today's Communication/Plan
-
Continue with IV fluid and supportive medications
Start meclizine for dizziness/vertiginous like symptoms
Trend BMP
Hold HCTZ
Start calcium replace
Assessment / Plan
Assessment / Plan
#Viral gastroenteritis
-Presented with diarrhea and nausea/vomiting, recently with children/others that had similar symptoms
-Symptoms that started nearly 1-1/2 weeks ago, does seem fairly prolonged course for infectious
-C. difficile testing negative, norovirus testing negative; stool cultures pending
-Was started on IV fluids and supportive antiemetics upon arrival, HCTZ held
-Will start Imodium empirically for diarrhea
-Continue to monitor clinically, trend BMP and CBC
-Follow-up stool culture for completeness
#Transaminitis
-Presented with AST and ALT near 5 times upper normal
-Suspected to be secondary to LINDER versus KARISHMA
-LFTs are downtrending since admission
-Continue to trend to normal here, encourage alcohol
-Patient has follow-up with GI pending for screening colonoscopy
#Dizziness
-Differential diagnosis include orthostasis from volume loss, cannot rule out underlying vertiginous
-Complained of vertiginous symptoms today that provoked nausea; no focal deficits on
-Will start meclizine trial empirically
#Electrolyte deficiency
-Secondary to vomiting and diarrhea over the last week and a half
-Had a hypovolemic hyponatremia and elevated K that have resolved
-Calcium low on labs today, will start calcium carbonate and vitamin D
- trend BMP, add on magnesium to morning labs
#HTN
-No known history of hypertensive systemic disease
-Home medications include HCTZ and ARB
-Holding HCTZ due to hypovolemia
#HLD
-No history of ASCVD, currently on moderate intensity statin atorvastatin
DVT prophylaxis: Subcutaneous Lovenox
Diet: CLD, advance as tolerated
CODE STATUS: Full Code
Anticipated Discharge: 24 - 48 hours
Subjective/Interval History
-
Date of Service: May 10, 2024
Seen and examined at bedside. No acute events reported overnight. AFVSS this morning
She still complains of significant symptoms with loose stools, nausea. Also states that she is getting dizzy/lightheaded with minor motions including sitting up in bed. Nausea mostly associated with her dizziness, denies abdomen pain or bloody
stools
Denies chest pain, dyspnea, fevers or chills, urinary issues, bleeding or bruising, paresthesias or weakness
Objective Data
-
Labs:
Laboratory Results
05/10/24
07:57
WBC 3.1 L
Hgb 11.2 L
Hct 31.4 L
Plt Count 154 D
Sodium 140
Potassium 3.6
Chloride 102
Carbon Dioxide 28
BUN 10
Creatinine 0.7
Glucose 82
Calcium 7.6 L
Total Bilirubin 1.4 H
AST 237 H
ALT 93 H
Alkaline Phosphatase 82
Vital Signs:
Vital Signs
Temp Pulse Resp BP Pulse Ox
98.4 F 66 18 124/76 98
05/10/24 07:00 05/10/24 07:00 05/10/24 07:00 05/10/24 08:25 05/10/24 07:00
I&O
05/09/24 05/10/24 05/11/24
06:59 06:59 06:59
Intake Total 740 / 740
Balance 740 / 740
Review of Systems
-
History Source: Patient
All other systems: Reviewed and negative
Physical Exam
-
General: Well Developed, Well Nourished, Appears in Distress and Conversant
HEENT: Normocephalic, Atraumatic, Moist Mucous Membranes and Anicteric
Respiratory: Clear to Auscultation and Non Labored Respirations
Cardiac: Regular Rhythm and S1/S2; Negative Murmur, Rub or Gallop
GI: Soft, Nontender, Nondistended and Normal Bowel Sounds
Musculoskeletal: No Clubbing, No Cyanosis and No Edema
Skin: Warm and Dry; Negative Rash
Neuro: AO x 3, Nonfocal/Grossly Intact and Central Nerve's Intact
Psych: Calm
Data Reviewed
-
Labs: Labs Reviewed by me and Discussed with Patient
[2024-05-10] MEDS: IMODIUM 2 MG PO (13:05)
[2024-05-10 15:00] VITALS: BP 121/75
[2024-05-10] MEDS: LOVENOX 40 MG SC (16:46)
[2024-05-10] MEDS: ANTIVERT 25 MG PO (16:47)
[2024-05-10] MEDS: TUMS CHEWABLE TABLET 200 MG PO (23:27)
[2024-05-10 23:58] VITALS: BP 140/86
[2024-05-11] MEDS: NSS with KCL 20 MEQ 1000 IV (00:05)
[2024-05-11 07:55] LABS: % Immature Granulocytes 0.3 % (0-0.5); % Lymphocytes 24.4 % (20.5-51.1); % Monocytes 6.9 % (1.7-9.3); % Neutrophils 66.4 % (42.2-75.2); Absolute Monocytes 0.3 10^3/uL (0.1-0.6); Absolute Neutrophils 2.6 10^3/uL (1.4-6.5); Hematocrit 31.2 % (37.0-47.0); Hemoglobin 10.7 g/dL (12.0-16.0); Mean Corp Hgb Conc. 34.3 g/dL (33.0-37.0); Mean Corpuscular Hgb 36.5 pg (27.0-31.0); Mean Corpuscular Volume 106.5 fL (81.0-99.0); Mean Platelet Volume 9.5 fL (7.4-10.4); Nucleated Red Blood Cells % 0 %; Platelet Count 126 10^3/uL (130-400); Red Blood Cell Count 2.93 10^6/uL (4.20-5.40); Red Cell Dist. Width 12.1 % (11.5-14.5); White Blood Cell Count 3.9 10^3/uL (4.8-10.8)
[2024-05-11 07:59] VITALS: BP 118/69
[2024-05-11] MEDS: OSCAL 500 + D 500 MG PO (08:00)
[2024-05-11] MEDS: COZAAR PO (08:00)
[2024-05-11] MEDS: LIPITOR 10 MG PO (08:00)
[2024-05-11 08:38] LABS: Blood Urea Nitrogen 5 mg/dl (7-17); Calcium 7.5 mg/dl (8.4-10.2); Carbon Dioxide 26 mmol/L (22-30); Chloride 105 mmol/L (98-107); Estimated Creatinine Clearance 90 ml/min; Glucose 115 mg/dl (70-99); Magnesium 1.5 mg/dl (1.6-2.3); Potassium 3.4 mmol/L (3.5-5.1); Sodium 140 mmol/L (135-145); eGFR > 60.00
[2024-05-11] MEDS: NSS with KCL 20 MEQ IV (09:18)
--- NOTE | 2024-05-11 10:19 | PTCARENOTE ---
Pt tolerating fluids. Had some toast this morning and tolerated that as well. No dizziness. No N/V/D. Mild heartburn.
[2024-05-11] MEDS: KCL 40 MEQ PO (10:51)
--- NOTE | 2024-05-11 11:39 | W.PN.HOSP.TC ---
Today's Communication/Plan
-
Advance diet to regular
Continue meclizine and Imodium as needed
Possible discharge later today
Assessment / Plan
Assessment / Plan
#Viral gastroenteritis
-Presented with diarrhea and nausea/vomiting, recently with children/others that had similar symptoms
-Symptoms that started nearly 1-1/2 weeks ago, does seem fairly prolonged course for infectious
-C. difficile testing negative, norovirus testing negative; stool cultures pending
-Was started on IV fluids and supportive antiemetics upon arrival, HCTZ held
-Has improved clinically with IV fluids, Imodium, and time
-Continue to monitor clinically, trend BMP and CBC
-Follow-up stool culture for completeness
-Advance to full diet
#Vertigo
-Suspect viral etiology causing both gastroenteritis and vertigo (DDx labyrinthitis versus vestibular neuritis
-Complained of vertiginous symptoms today that provoked nausea; no focal deficits on
-Will start meclizine trial empirically
#Electrolyte deficiency
-Secondary to vomiting and diarrhea over the last week and a half
-Had a hypovolemic hyponatremia and elevated K that have resolved
-Calcium low on labs today, will start calcium carbonate and vitamin D
-Repleted potassium and magnesium this morning
-Expect this to be resolved now that she is tolerating diet
#Transaminitis
-Presented with AST and ALT near 5 times upper normal
-Suspected to be secondary to LINDER versus KARISHMA
-LFTs are downtrending since admission
-Continue to trend to normal here, encourage alcohol
-Patient has follow-up with GI pending for screening colonoscopy
#HTN
-No known history of hypertensive systemic disease
-Home medications include HCTZ and ARB
-Holding HCTZ due to hypovolemia
#HLD
-No history of ASCVD, currently on moderate intensity statin atorvastatin
DVT prophylaxis: Subcutaneous Lovenox
Diet: CLD, advance as tolerated
CODE STATUS: Full Code
Anticipated Discharge: Within 24 hours
Subjective/Interval History
-
Date of Service: May 11, 2024
Seen and examined at the bedside. No acute events reported overnight. AFVSS this morning.
She states she feels much better today. Reports improved symptoms following the first dose of meclizine yesterday. Diarrhea also improved since starting Imodium. Has been tolerating clear liquid diet and asks for escalation to her diet. Ordered
regular diet
She denies any new acute complaints including chest pain, dyspnea, fevers or chills, urinary issues, bleeding or bruising, paresthesias or weakness.
Objective Data
-
Labs:
Laboratory Results
05/11/24
07:35
WBC 3.9 L
Hgb 10.7 L
Hct 31.2 L
Plt Count 126 L
Sodium 140
Potassium 3.4 L
Chloride 105
Carbon Dioxide 26
BUN 5 L
Creatinine 0.6
Glucose 115 H
Calcium 7.5 L
Vital Signs:
Vital Signs
Temp Pulse Resp BP Pulse Ox
98.3 F 66 19 118/69 100
05/11/24 07:59 05/11/24 07:59 05/11/24 07:59 05/11/24 07:59 05/11/24 09:23
I&O
05/10/24 05/11/24 05/12/24
06:59 06:59 06:59
Intake Total 740 / 740 2160 / 2160
Balance 740 / 740 2160 / 2160
Review of Systems
-
History Source: Patient
All other systems: Reviewed and negative
Physical Exam
-
General: Well Nourished, No Apparent Distress and Comfortable
HEENT: Normocephalic, Atraumatic and Moist Mucous Membranes
Respiratory: Clear to Auscultation and Non Labored Respirations
Cardiac: Regular Rhythm and S1/S2; Negative Murmur, Rub or Gallop
GI: Soft, Nontender, Nondistended and Normal Bowel Sounds
Musculoskeletal: No Clubbing, No Cyanosis and No Edema
Skin: Warm, Dry and Normal Turgor; Negative Rash
Neuro: AO x 3, Nonfocal/Grossly Intact and Central Nerve's Intact
Psych: Calm
Data Reviewed
-
Labs: Labs Reviewed by me and Discussed with Patient
[2024-05-11] MEDS: MAGNESIUM SULFATE 50 IV (12:01)
--- NOTE | 2024-05-11 14:00 | W.DCSUMMARY ---
Discharge Summary
Discharge Data
Date of Admission: 05/09/24
Date of Discharge: 05/11/24
-
Pending Results: No
Hospital Course
53-year-old female with hypertension, hyperlipidemia that presented with intractable nausea and vomiting with diarrhea over the last 1 to 2 weeks. Symptoms for started after exposure with children and adults that had previous similar symptoms.
Developed worsening dizziness as her symptoms progressed. Upon arrival was found to have electrolyte deficiencies with low calcium, magnesium, potassium which were monitored and repleted as needed. Stool cultures and C. difficile testing were
unremarkable. Stool WBC testing negative. Suspicion high for viral gastroenteritis with superimposed vertigo secondary to viral labyrinthitis versus vestibular neuritis. Symptomatically improved very quickly on meclizine and Imodium as needed.
Was able to tolerate clear liquid diet then full diet on 05/11/2024. Patient felt comfortable with discharge to home and outpatient vestibular therapy. Was given supportive medications at discharge including Imodium and meclizine for 1 week.
Started calcium and vitamin D supplement for low calcium levels in the ED and hospital.
Encourage patient to return to the emergency department if she developed recurrence of her intractable nausea or vomiting or new symptoms such as rectal bleeding. Advised her to follow-up with her primary care doctor within 1 to 2 weeks of
discharge from hospital.
Discharge Plan
-
Patient Disposition: Home (Routine Discharge)
Discharge Diagnosis/Procedures: Viral gastroenteritis
Vertigo -- likely vestibular neuritis versus labyrinthitis
Condition: Good
Diet: No restrictions
Activity: As tolerated
Driving Restrictions: No driving for 24 hours
Bathing Restrictions: None
Blood Work: None
Others Tests: None
Other Services: PT
Activity Restrictions/Additional Instructions:
Schedule follow-up appointment with your family doctor within 1 to 2 weeks of discharge for routine posthospital follow-up
Call and schedule vestibular therapy at office near you
Instructions: Vertigo (a type of dizziness), Viral gastroenteritis in adults
Referrals:
Adenike Clay PA [Family Provider] -
Additional Discharge Medication Instructions: Start calcium�vitamin D3 1 tab twice daily
Continue loperamide every 4 hours as needed for diarrhea
Continue meclizine every 8 hours as needed for vertigo symptoms
Use home Zofran as needed for nausea
Stop taking hydrochlorothiazide until you see your family doctor
Prescriptions:
New
meclizine 25 mg Tablet
25 mg PO Q8HPRN PRN (Reason: dizziness) 30 Days Qty: 30 0RF
loperamide 2 mg Capsule
2 mg PO Q4HPRN PRN (Reason: diarrhea) 7 Days Qty: 30 0RF
calcium carbonate-vitamin D3 [Oyster Shell Calcium-Vit D3] 500 mg-5 mcg (200 unit) Tablet
1 tab PO BID 30 Days Qty: 60 0RF
Continued
atorvastatin 10 mg Tablet
10 mg PO DAILY
losartan 25 mg Tablet
25 mg PO DAILY
acetaminophen [Tylenol] 325 mg Tablet
650 mg PO Q6HPRN PRN (Reason: headachs)
bisacodyl 10 mg Suppository
10 mg NC DAILYPRN PRN (Reason: constipation)
ondansetron 4 mg tablet,disintegrating
4 mg PO TIDPRN PRN (Reason: nausea/vomiting) Qty: 8 0RF
hydrocortisone acetate [Anusol-HC] 25 mg suppository
25 mg NC DAILY
Discontinued
hydrochlorothiazide 12.5 mg Tablet
12.5 mg PO DAILY
Discharge Orders:
Discharge Patient (As Directed); Ordered 05/11/24
Ordered By: Jase Julien
Discharge Date and Time
Print Language: BULGARIAN
--- NOTE | 2024-05-11 14:10 | CM ---
Home today no needs.
Plan; Home no needs.
--- NOTE | 2024-05-11 14:29 | PTCARENOTE ---
Pt ate regular lunch and tolerated well. No N/V/D today. Pt anxious to go home.
[2024-05-11 14:52] VITALS: BP 124/67
== END 2024-05-11 14:53 | disposition home or self-care (01) ==
LOC: 4 WEST ACU 22:31
PROVIDERS: Physician Assistant; Physician Assistant Medical; ADMITTING PHYSICIAN Internal Medicine; ATTENDING PHYSICIAN Internal Medicine; EMERGENCY PHYSICIAN Emergency Medicine; FAMILY PHYSICIAN Physician Assistant Medical
DX: A08.4 Viral intestinal infection, unspecified (principal); E86.1 Hypovolemia; H83.09 Labyrinthitis, unspecified ear; E87.8 Other disorders of electrolyte and fluid balance, not elsewhere classified; E87.1 Hypo-osmolality and hyponatremia; I10 Essential (primary) hypertension; E78.5 Hyperlipidemia, unspecified; E87.6 Hypokalemia
CPT/HCPCS: 76700; 80048; 80053; 81003; 81015; 82248; 83690; 83735; 85025; 85027; 87045; 87046; 87077; 87324; 87427; 87449; 87798; 89055; 96361; 96374; 99285; G0378

== ENCOUNTER 2024-08-11 03:55 | Emergency (ER) | payer BC, SELFPAY ==
[2024-08-11 03:56] VITALS: BP 132/90
[2024-08-11 05:06] VITALS: BMI 23.9
--- NOTE | 2024-08-11 05:09 | EDRN ---
Pt complains of a bad headache, vertigo, extreme nausea and says her bp was elevated at home. Pt had a concussion in the summer, got a stomach flu that 'landed me here' in April and says she has had vertigo since. Pt admitted for 3 days at that
time. Pt had had constant dull headache since her concussion and at times, it gets sever and turns into a migraine. Pt slept most of the day Friday and Friday which is normal for her. During the week, pt cannot sleep at nighttime and is usually
up starting at [id number] for the whole day. Symptoms got bad yesterday, pt was unable to work. Pt woke around 0030 with 'an awful headache' and 'the spinning started.' Pt feels there are tremors happening inside her body that she cannot control.
Yesterday, pt took meclizine which lessened symptoms and tylenol for headache which did not help headache. Pt has tried to see a neurologist but has been unable to get an appointment for many months. Pt is not eating much because her head hurts
and she has nausea all the time. says pt has nausea and vomits all the time. Pt feels some chest tightness and says she has hx of anxiety. Middle abdomen hurts 'a little bit' and comes and goes. No fever/chills/cough, sob, urinary
symptoms. Pt had generalized weakness. While lying still, pt feels 'like I'm on a boat and it is moving.'
[2024-08-11 05:23] VITALS: BP 123/82
[2024-08-11] MEDS: ZOFRAN ODT (ORALLY DISINTEGRATING) 4 MG PO (05:43)
--- NOTE | 2024-08-11 05:49 | EDRN ---
Pt was instructed upon discharge in April to call and make appointment with vestibular therapy and admits she did not do that because of the holidays.
--- NOTE | 2024-08-11 06:11 | ED.GENMED ---
History of Present Illness
General
Chief Complaint: Abdominal Symptoms
Source: patient
Exam Limitations: none
Time Seen by Provider: 08/11/24 06:01
History of Present Illness
History of Present Illness:
See MDM
Past History
Past History
ED Past Medical History: Psychiatric and Other (Aortic regurgitation, rheumatoid arthritis, thoracic aortic aneurym 4.5 cm)
ED Past Surgical History: None
Social History
Tobacco: Non-smoker
Alcohol: Daily (2 whiskey drinks daily)
Drug: None
Personal:
Living: with family
Employment: Employed
Phy Exam
Physical Exam
Physical Exam:
See MDM
Course
Orders/Labs/Results
Orders:
Orders
08/11/24 05:41
Ondansetron Orally Disint [Zofran Odt (Orally Disintegrating)] 4 mg PO NOW STA
08/11/24 06:10
0.9% Sodium Chloride 1000 ml [Nss] 1,000 ml IV BOLUS
Ketorolac [Toradol] 30 mg IV NOW STA
diazePAM [Valium Injection] 2 mg IV NOW STA
08/11/24 06:42
Complete Blood Count/With Diff Urgent
Comprehensive Metabolic Panel Urgent
Lipase Urgent
08/11/24 07:39
0.9% Sodium Chloride 1000 ml [Nss] 1,000 ml IV BOLUS
US Abdomen Complete/Upper Urgent
Comment:
Reason For Exam: RUQ pain
Abnormal Lab Results
08/11/24
06:42
WBC 3.0 L 10^3/uL
(4.8-10.8)
RBC 3.26 L 10^6/uL
(4.20-5.40)
Hgb 11.8 L g/dL
(12.0-16.0)
Hct 33.8 L %
(37.0-47.0)
MCV 103.7 H fL
(81.0-99.0)
MCH 36.2 H pg
(27.0-31.0)
Absolute Lymphs (auto) 0.8 L 10^3/uL
(1.2-3.4)
BUN 6 L mg/dl
(7-17)
Creatinine 0.5 L mg/dL
(0.6-1.0)
AST 313 H U/L
(14-36)
ALT 174 H U/L
(0-35)
08/11/24 06:42
08/11/24 06:42
Vital Signs
Initial and Last Documented VS:
Initial Vital Signs
Temp Pulse Resp BP Pulse Ox
98.5 F 96 20 132/90 98
08/11/24 03:56 08/11/24 03:56 08/11/24 03:56 08/11/24 03:56 08/11/24 03:56
Last Documented Vital Signs
Temp Pulse Resp BP Pulse Ox
98.5 F 73 16 123/82 96
08/11/24 03:56 08/11/24 05:23 08/11/24 05:23 08/11/24 05:23 08/11/24 05:23
MDM/Problems Addressed
Differential Diagnosis Includes:
HPI and MDM Narrative:
54-year-old female presenting with multiple vague complaints. Patient states she has a headache and she feels dizzy. She has mild photophobia and mild abdominal cramping. This is associated with nausea as well. Symptoms appear to have started
last year when she developed a concussion after a fall. She was then admitted several months later due to persistent nausea and vomiting where she had electrolyte abnormalities. Patient states symptoms have not completely cleared. She has been
trying to follow-up with neurology but has been unsuccessful in setting up an appointment.
On my exam, she is well-appearing and nontoxic. She has no focal neurodeficits. No cerebellar signs. There is very mild fatigable horizontal nystagmus. Patient states vertigo has been an ongoing issue for her as well. Given her prior history
with electrolyte abnormalities, will obtain basic blood work. Will give Toradol for headache and Valium for dizziness. Patient was already given Zofran ODT prior to my assessment.
I had a long discussion with patient indicating that obtaining CT head and CT abdomen/pelvis for her ongoing chronic issues are not indicated. We discussed more risk than harm due to radiation exposure. Patient does acknowledge this. I did
discuss the importance of outpatient follow-up to discuss MRI brain. Patient states he has been trying to follow-up with neurology but we discussed this can be discussed and performed with PCP
Physical exam
General: Well appearing and non-toxic
HEENT: protecting airway. Pupils equal and reactive. EOMI. Very mild horizontal nystagmus
Neck: appears supple
CV: No evidence of cyanosis
Resp: No accessory muscle use
Abd: Non-distended. No tenderness elicited to palpation
Extremities: No deformities
Neuro: alert. Normal finger-nose
Psych: Normal affect
Skin: Intact
Problems Addressed including Acute and Chronic Conditions affecting care:
1. Headache and dizziness
Acuity: Chronic
Prognosis: stable
Details: Will give dose of Toradol and Valium. She has no cerebellar signs
2. Abdominal pain
Acuity: Chronic
Prognosis: stable
Details: We discussed low utility in CT abdomen/pelvis. Will obtain basic blood work and lipase
3. Dehydration
Acuity: acute
Prognosis: stable
Details: Will give IV fluids
Updates
Patient found to have overall increase in her LFTs. I question whether or not she was aware of this. She does acknowledge that she is aware she has a history of elevated LFTs but has not followed up with GI as it was suggested.
Ultrasound negative for acute pathology. We discussed the incidental findings of likely fatty liver. Will place on GI callback tracker
Differential Diagnosis (but not limited to): Hyponatremia, dehydration, acute kidney injury, postconcussion syndrome
Testing considered: CT head
Drug therapy (if applicable): OTC meds, please see d/c instruction regarding Rx drugs
Amount and/or Complexity of Data Reviewed
Clinical info obtained from: Patient
External data reviewed: Has been admitted before due to uncontrolled nausea and vomiting with electrolyte abnormalities
Labs I independently reviewed (but not limited to): Elevated LFTs
Radiology: Ultrasound report reviewed
Pulse Ox: not hypoxic
EKG independently reviewed: N/A
Decision Unit Rn: N/A
Critical Care: N/A
Risk of Complication:
Social Determinants of health: Good social support
Discussed with other providers: N/A
Escalation of Care includes Admit/Obs: After being observed in the Emergency Department, pt stable for discharge.
Occasional wrong word or 'sound a like' substitutions may have occurred due to the inherent limitations of voice recognition software. Read the chart carefully and recognize, using context, where substitutions have occurred.
*Critical Care Note
Total Time (30-74mins, 75-104mins- exclusive of procedures): Not Applicable
ED Attending Note
-
Portions of this chart may have been created with voice recognition software.� Occasional wrong word or��sound alike� substitutions may have occurred due to the inherent limitations of voice recognition software.
Discharge Plan
Departure
Patient Disposition: Home (Routine Discharge)
Date of Disposition: 08/11/24
Time of Disposition: 09:36
Patient with high blood pressure during this ER visit?: No
Discharge Problem:
Dizziness
Prescriptions:
New
ondansetron 4 mg Tablet,Disintegrating
4 mg PO BIDPRN PRN (Reason: nausea/vomiting) Qty: 10 0RF
diazepam [Valium] 5 mg tablet
5 mg PO BID PRN (Reason: dizziness) Qty: 14 0RF
No Action
atorvastatin 10 mg Tablet
10 mg PO DAILY
losartan 25 mg Tablet
25 mg PO DAILY
meclizine 25 mg Tablet
25 mg PO Q8HPRN PRN (Reason: dizziness) 30 Days Qty: 30 0RF
Referrals:
Kd Clifford DO [Family Provider] -
Irene Vázquez MD [Active] -
Activity Restrictions/Additional Instructions:
Please return for any worsening symptoms.
You may return at any time if you have further concerns.
Please follow up with your doctor at the first available appointment, preferably this week. Please discuss your ongoing symptoms, your insomnia and your persistent headaches. Your primary care may recommend brain MRI until you follow-up with
neurology.
You were placed on the gastroenterology callback tracker. Someone from their office should call you in the next few days. If you do not hear from them in the next few days, please give them a call.
Thank you for choosing [facility].
Interventions
Interventions:
*Risk Screen - Suicide Last Done: 08/11/24 03:56
*General Assessment Last Done: 08/11/24 05:06
*Neglect/Abuse Screening Last Done: 08/11/24 03:56
*ED COVID-19 Vaccine History Last Done: 08/11/24 05:06
WC-Jbdleq-Ebjwknipcz Assessment Last Done: 08/11/24 05:30
ED- Neurological Assessment Last Done: 08/11/24 05:30
Discharge Date and Time
Print Language: ICELANDIC
[2024-08-11] MEDS: NSS 1000 IV ×2 (06:43→07:49)
[2024-08-11] MEDS: TORADOL 30 MG IV (06:44)
[2024-08-11] MEDS: VALIUM INJECTION 2 MG IV (06:46)
[2024-08-11 06:57] LABS: % Basophils 1.6 % (0-2); % Eosinophils 1.3 % (0-6); % Immature Granulocytes 0.3 % (0-0.5); % Lymphocytes 27.6 % (20.5-51.1); % Monocytes 8.9 % (1.7-9.3); % Neutrophils 60.3 % (42.2-75.2); Absolute Basophils 0.1 10^3/uL (0-0.2); Absolute Lymphocytes 0.8 10^3/uL (1.2-3.4); Absolute Monocytes 0.3 10^3/uL (0.1-0.6); Absolute Neutrophils 1.8 10^3/uL (1.4-6.5); Hematocrit 33.8 % (37.0-47.0); Hemoglobin 11.8 g/dL (12.0-16.0); Mean Corp Hgb Conc. 34.9 g/dL (33.0-37.0); Mean Corpuscular Hgb 36.2 pg (27.0-31.0); Mean Corpuscular Volume 103.7 fL (81.0-99.0); Mean Platelet Volume 9.2 fL (7.4-10.4); Nucleated Red Blood Cells % 0 %; Platelet Count 131 10^3/uL (130-400); Red Blood Cell Count 3.26 10^6/uL (4.20-5.40); Red Cell Dist. Width 12.2 % (11.5-14.5)
[2024-08-11 07:08] LABS: ALT (SGPT) 174 U/L (0-35); AST (SGOT) 313 U/L (14-36); Albumin 4.4 g/dl (3.5-5.0); Alkaline Phosphatase 87 U/L (38-126); Blood Urea Nitrogen 6 mg/dl (7-17); Calcium 9.2 mg/dl (8.4-10.2); Carbon Dioxide 26 mmol/L (22-30); Chloride 101 mmol/L (98-107); Estimated Creatinine Clearance 88 ml/min; Glucose 99 mg/dl (70-99); Lipase 196 U/L (23-300); Sodium 137 mmol/L (135-145); Total Bilirubin 0.8 mg/dl (0.2-1.3); Total Protein 7.2 g/dl (6.3-8.2); eGFR > 60.00
[2024-08-11 08:00] VITALS: BP 124/77
[2024-08-11 09:57] VITALS: BP 119/72
== END 2024-08-11 09:57 | disposition home or self-care (01) ==
LOC: EMR 03:55
PROVIDERS: EMERGENCY PHYSICIAN Student in an Organized Health Care Education/Training Program; FAMILY PHYSICIAN Family Medicine
DX: R42 Dizziness and giddiness (principal); R51.9 Headache, unspecified; R11.0 Nausea; M06.9 Rheumatoid arthritis, unspecified
CPT/HCPCS: 96374; 96375; 96361; 99284; 76700; 80053; 83690; 85025

== ENCOUNTER → 2024-09-23 07:08 | Outpatient (REF) | payer BC, SELFPAY | LOC: RCS 07:08 | PROVIDERS: ATTENDING PHYSICIAN Internal Medicine; FAMILY PHYSICIAN Family Medicine | DX: R00.0 Tachycardia, unspecified (principal); R00.2 Palpitations | CPT/HCPCS: 93306 ==

== ENCOUNTER 2024-10-18 09:40 | Emergency (ER) | payer BC, SELFPAY ==
[2024-10-18 09:45] VITALS: BP 160/81
--- NOTE | 2024-10-18 10:10 | ED.GENMED ---
History of Present Illness
General
Chief Complaint: Abdominal Symptoms
Time Seen by Provider: 10/18/24 09:59
History of Present Illness
History of Present Illness:
Patient is a 54-year-old woman with history of concussion with postconcussive syndrome presenting to the emergency department with nausea vomiting diarrhea. She states that she also feels dizzy especially when going from sitting to standing but
also when she looks to the left. She does have history of vertigo that is worse when she is having her flares. She is on meclizine as well as antiemetics. Patient states that the symptoms have been ongoing since last year. This is just an
exacerbation of her flare. Per chart review it appears the patient was seen here in July for the same complaints. She states that her symptoms generally have been persistent. She has decreased p.o. secondary to it. Per chart review it
appears the patient was admitted last year for the same complaints at this time was hypokalemic.
Past History
Past History
ED Past Medical History: Psychiatric and Other (Aortic regurgitation, rheumatoid arthritis, thoracic aortic aneurym 4.5 cm)
ED Past Surgical History: None
Social History
Tobacco: Non-smoker
Alcohol: Daily (2 whiskey drinks daily)
Drug: None
Personal:
Living: with family
Employment: Employed
Phy Exam
Physical Exam
Physical Exam:
GENERAL: in no acute distress
HEENT: normocephalic, extraocular movements intact, moist oral mucosa
NECK: normal inspection
RESPIRATORY: no respiratory distress, clear to auscultation bilaterally
CARDIOVASCULAR: regular rate and rhythm
ABDOMEN/: soft, non-distended, non-tender to palpation, no rebound or guarding
EXTREMITIES: non-tender, no edema/swelling
NEUROLOGIC: awake and alert, moves all extremities, equal strength in upper and lower extremities, normal [id number]
SKIN: warm
Course
Orders/Labs/Results
Orders:
Orders
10/18/24 10:10
0.9% Sodium Chloride 1000 ml [Nss] 1,000 ml IV BOLUS
Ondansetron Injectable [Zofran] 4 mg IV NOW STA
10/18/24 10:30
Basic Metabolic Panel Urgent
COVID-19 Antigen Urgent
Source: Nasal Swab
Complete Blood Count/With Diff Urgent
Influenza A+B Rapid Molecular Urgent
KAYLI Source: Nasal Swab
Specimen Description:
Abnormal Lab Results
10/18/24
10:30
WBC 4.5 L 10^3/uL
(4.8-10.8)
RBC 3.47 L 10^6/uL
(4.20-5.40)
Hct 36.0 L %
(37.0-47.0)
MCV 103.7 H fL
(81.0-99.0)
MCH 36.0 H pg
(27.0-31.0)
Plt Count 128 L 10^3/uL
(130-400)
Absolute Lymphs (auto) 0.8 L 10^3/uL
(1.2-3.4)
Neutrophils % 75.7 H %
(42.2-75.2)
Lymphocytes % 16.6 L %
(20.5-51.1)
Glucose 150 H mg/dl
(70-99)
10/18/24 10:30
10/18/24 10:30
Vital Signs
Initial and Last Documented VS:
Initial Vital Signs
Temp Pulse Resp BP Pulse Ox
98.8 F 55 16 160/81 98
10/18/24 09:45 10/18/24 09:45 10/18/24 09:45 10/18/24 09:45 10/18/24 09:45
Last Documented Vital Signs
Temp Pulse Resp BP Pulse Ox
98.8 F 57 16 112/46 98
10/18/24 09:45 10/18/24 12:02 10/18/24 12:02 10/18/24 12:02 10/18/24 12:02
MDM/Problems Addressed
Differential Diagnosis Includes:
Patient is a 54-year-old woman presenting to the emergency department with nausea vomiting diarrhea and dizziness. On arrival vitals unremarkable and exam shows a well-appearing woman with no focal deficits. Her abdomen is benign. Likely
exacerbation of her postconcussive symptoms however could be an acute component of viral gastroenteritis versus dehydration or metabolic derangements. Will give fluids and antiemetics and check blood work. I did consider obtaining CT scan however
patient without any cerebellar signs less likely to be posterior CVA and abdomen is benign so we will hold off on CT abdomen pelvis.
*Critical Care Note
Total Time (30-74mins, 75-104mins- exclusive of procedures): Not Applicable
Update Note
Update Note:
On reevaluation patient does feel slightly better. Blood work is reassuring. Patient has has not had any further episodes of vomiting. She is tolerating p.o. Patient is requesting to go home which is appropriate. She does state that she has
intermittent episodes of the dizziness but does state that is only positional. Likely component of her vertigo. Patient will take her home meclizine. Also advised patient on staying well-hydrated today as she was having orthostatic dizziness as
well. Strict return precautions given. Will discharge at this time.
ED Attending Note
-
Portions of this chart may have been created with voice recognition software.� Occasional wrong word or��sound alike� substitutions may have occurred due to the inherent limitations of voice recognition software.
Discharge Plan
Departure
Patient Disposition: Home (Routine Discharge)
Date of Disposition: 10/18/24
Time of Disposition: 12:40
Patient with high blood pressure during this ER visit?: No
Discharge Problem:
Vomiting
Instructions: Nausea and Vomiting, Adult (DC)
Prescriptions:
No Action
atorvastatin 10 mg Tablet
10 mg PO DAILY
losartan 25 mg Tablet
25 mg PO DAILY
meclizine 25 mg Tablet
25 mg PO Q8HPRN PRN (Reason: dizziness) 30 Days Qty: 30 0RF
ondansetron 4 mg Tablet,Disintegrating
4 mg PO BIDPRN PRN (Reason: nausea/vomiting) Qty: 10 0RF
diazepam [Valium] 5 mg tablet
5 mg PO BID PRN (Reason: dizziness) Qty: 14 0RF
Referrals:
Holly Painter DO [Family Provider] -
Interventions
Interventions:
[id number] Assessment Last Done: 10/18/24 10:36
Discharge Date and Time
Print Language: KOREAN
[2024-10-18] MEDS: NSS 1000 IV (10:35)
[2024-10-18 10:36] VITALS: BP 93/79
[2024-10-18] MEDS: ZOFRAN 4 MG IV (10:44)
[2024-10-18 10:54] LABS: % Basophils 1.1 % (0-2); % Eosinophils 0.9 % (0-6); % Immature Granulocytes 0.2 % (0-0.5); % Lymphocytes 16.6 % (20.5-51.1); % Monocytes 5.5 % (1.7-9.3); % Neutrophils 75.7 % (42.2-75.2); Absolute Basophils 0.1 10^3/uL (0-0.2); Absolute Lymphocytes 0.8 10^3/uL (1.2-3.4); Absolute Monocytes 0.3 10^3/uL (0.1-0.6); Absolute Neutrophils 3.4 10^3/uL (1.4-6.5); Hemoglobin 12.5 g/dL (12.0-16.0); Mean Corp Hgb Conc. 34.7 g/dL (33.0-37.0); Mean Corpuscular Volume 103.7 fL (81.0-99.0); Mean Platelet Volume 10.3 fL (7.4-10.4); Nucleated Red Blood Cells % 0 %; Platelet Count 128 10^3/uL (130-400); Red Blood Cell Count 3.47 10^6/uL (4.20-5.40); Red Cell Dist. Width 12.3 % (11.5-14.5); White Blood Cell Count 4.5 10^3/uL (4.8-10.8)
[2024-10-18 11:08] LABS: Blood Urea Nitrogen 11 mg/dl (7-17); Calcium 9.2 mg/dl (8.4-10.2); Carbon Dioxide 30 mmol/L (22-30); Chloride 99 mmol/L (98-107); Glucose 150 mg/dl (70-99); Potassium 4.1 mmol/L (3.5-5.1); Sodium 140 mmol/L (135-145); eGFR > 60.00
[2024-10-18 11:16] LABS: COVID-19 Antigen Negative (Negative)
--- NOTE | 2024-10-18 11:16 | EDRN ---
pt reports decreased nausea.
[2024-10-18 12:02] VITALS: BP 112/46
== END 2024-10-18 12:53 | disposition home or self-care (01) ==
LOC: EMR 09:40
PROVIDERS: EMERGENCY PHYSICIAN Student in an Organized Health Care Education/Training Program; FAMILY PHYSICIAN Family Medicine
DX: R11.2 Nausea with vomiting, unspecified (principal); R42 Dizziness and giddiness; R19.7 Diarrhea, unspecified; Z11.52 Encounter for screening for COVID-19
CPT/HCPCS: 96374; 96361; 99284; 80048; 85025; 87502; 87811

== ENCOUNTER 2024-12-06 09:39 | Emergency (ER) | payer BC, SELFPAY ==
[2024-12-06 09:45] VITALS: BP 147/98
[2024-12-06] MEDS: REGLAN 10 MG IV (12:28)
[2024-12-06] MEDS: ZOFRAN 4 MG IV (12:28)
[2024-12-06] MEDS: BENADRYL 25 MG IV (12:28)
[2024-12-06] MEDS: NSS 1000 IV (12:29)
[2024-12-06 12:36] LABS: % Basophils 1.4 % (0-2); % Eosinophils 0.9 % (0-6); % Immature Granulocytes 0.2 % (0-0.5); % Lymphocytes 18.5 % (20.5-51.1); % Monocytes 6.1 % (1.7-9.3); % Neutrophils 72.9 % (42.2-75.2); Absolute Basophils 0.1 10^3/uL (0-0.2); Absolute Lymphocytes 0.8 10^3/uL (1.2-3.4); Absolute Monocytes 0.3 10^3/uL (0.1-0.6); Absolute Neutrophils 3.1 10^3/uL (1.4-6.5); Hematocrit 34.4 % (37.0-47.0); Hemoglobin 12.5 g/dL (12.0-16.0); Mean Corp Hgb Conc. 36.3 g/dL (33.0-37.0); Mean Corpuscular Hgb 37.1 pg (27.0-31.0); Mean Corpuscular Volume 102.1 fL (81.0-99.0); Nucleated Red Blood Cells % 0 %; Platelet Count 144 10^3/uL (130-400); Red Blood Cell Count 3.37 10^6/uL (4.20-5.40); Red Cell Dist. Width 12.8 % (11.5-14.5); White Blood Cell Count 4.3 10^3/uL (4.8-10.8)
[2024-12-06 12:38] VITALS: BP 132/70; BMI 24.4
[2024-12-06 13:05] LABS: ALT (SGPT) 111 U/L (0-35); AST (SGOT) 281 U/L (14-36); Albumin 4.4 g/dl (3.5-5.0); Alkaline Phosphatase 132 U/L (38-126); Blood Urea Nitrogen 14 mg/dl (7-17); Calcium 8.9 mg/dl (8.4-10.2); Carbon Dioxide 26 mmol/L (22-30); Chloride 98 mmol/L (98-107); Estimated Creatinine Clearance 85 ml/min; Glucose 102 mg/dl (70-99); Potassium 3.5 mmol/L (3.5-5.1); Sodium 139 mmol/L (135-145); Total Bilirubin 3.2 mg/dl (0.2-1.3); Total Protein 7.7 g/dl (6.3-8.2); eGFR > 60.00
--- NOTE | 2024-12-06 13:47 | ED.GENMED ---
History of Present Illness
General
Chief Complaint: Dizziness
Source: patient, spouse and previous hospital records
Exam Limitations: none
Time Seen by Provider: 12/06/24 10:53
Nursing documentation reviewed up to this point in time: agreed with
History of Present Illness
History of Present Illness:
Patient is a 54-year-old female with past medical history of concussion in December 2023, vertigo ever since the concussion, hypertension, hyperlipidemia, migraine headaches, thoracic aortic aneurysm which is monitored with echocardiogram every 6
months, who presents to the emergency department accompanied by her from home for evaluation of severe dizziness associated with intractable nausea and vomiting. Patient reports that the vertigo is essentially constant however she will have
episodes where it seems to 'flareup'. Patient reports that it feels like a dizziness or spinning sensation. Patient reports that she had a flareup that started yesterday. She reports that she developed nausea and vomiting this morning and has had
innumerable episodes since it started. Patient denies recent head injury or trauma. Patient denies any numbness, weakness, tingling of her extremities. Patient reports the dizziness is so severe that she often does not leave her room. She
reports that when she walks, she needs to hold onto objects. She reports that when her is not home and she needs to use the restroom, she crawls on the floor to avoid falling. Patient's reports that she has fallen in the past due
to the dizziness but not recently. Patient admits that she has been under increased stress lately. She states that her brother yesterday and she had his . She reports that the second portion of the was today and she was to
give a eulogy which she admits that she was extremely anxious about. reports the patient has had to quit her job due to the degree of dizziness that she has been experiencing. Patient is prescribed medications at home for the dizziness
which does not provide her any relief. Patient has not even seen neurology for this, she reportedly has an appointment in July 2025. Patient reports that she did try to have vestibular therapy once but it seemed to make her symptoms worse.
Past History
Past History
ED Past Medical History: Psychiatric and Other (Aortic regurgitation, rheumatoid arthritis, thoracic aortic aneurym 4.5 cm)
ED Past Surgical History: None
Social History
Tobacco: Non-smoker
Alcohol: Daily (2 whiskey drinks daily)
Drug: None
Personal:
Living: with family
Employment: Employed
Review of Systems
Review of Systems
All Other Systems: Not applicable
Constitutional: Reports no symptoms
EENT: Reports no symptoms
Respiratory: Reports no symptoms
Cardiac: Reports no symptoms
ABD/GI: Reports nausea and vomiting; Denies abdominal pain
: Reports no symptoms
Musculoskeletal: Reports no symptoms
Skin: Reports no symptoms
Neurological: Reports dizzy and headache
Endocrine: Reports no symptoms
Hematologic/Lymphatic: Reports no symptoms
Psychiatric: Reports no symptoms
Phy Exam
General Physical Exam
General Presentation: well appearing and no apparent distress
General Skin: warm and dry
General Habitus: normal
General Mental: alert
General Hydration: appears well hydrated
ENT Exam
ENT Exam: EOMI, pharynx normal, neck supple, normocephalic and other (bilateral cerumen impaction)
Eye Exam
Eye Exam: PERRL, cornea clear, conjunctiva normal and other (no nystagmus)
Cardiovascular Exam
Cardiovascular Exam: regular rate/rhythm, no edema, no murmur and normal peripheral pulses
Pulmonary Exam
Pulmonary Exam: lungs clear, no respiratory distress, no rales, no crackles, no rhonchi, no stridor, no wheezing and no cough
Gastrointestinal Exam
Gastrointestinal Exam: normal bowel sounds, non tender, soft, no organomegaly, no pulsatile mass and non distended
Neurological Exam
Neurological Exam: alert, oriented x3, CN II-XII intact, no motor deficits, no sensory deficits and speech normal
Musculoskeletal Exam
Musculoskeletal Exam: full ROM and no edema
Skin Exam
Skin Exam: normal color, warm/dry, no rash and no petechia
Psychiatric Exam
Psychiatric Exam: normal mood/affect
Course
Orders/Labs/Results
Orders:
Orders
12/06/24 11:23
EKG- Treatment ONCE
0.9% Sodium Chloride 1000 ml [Nss] 1,000 ml IV BOLUS
12/06/24 11:24
Electrocardiogram (*1) Urgent
Reason for Study: Vertigo / Dizzy
12/06/24 11:30
Diphenhydramine [Benadryl] 25 mg IV NOW STA
Metoclopramide [Reglan] 10 mg IV NOW STA
12/06/24 11:56
CT Head & Neck Angio W/wo IV Urgent
Comment:
Reason For Exam: severe dizziness, vomiting
12/06/24 11:59
Pt Eval And Treat Urgent
Treatment: evaluate dizziness
Activity Level: As Tolerated
12/06/24 12:25
Ondansetron Injectable [Zofran] 4 mg IV NOW STA
12/06/24 12:28
Complete Blood Count/With Diff Urgent
Comprehensive Metabolic Panel Urgent
Direct Bilirubin Urgent
12/06/24 13:56
US Abdomen Complete/Upper Urgent
Comment:
Reason For Exam: nausea/vomiting, elevated Tbili/transaminitis
12/06/24 14:00
Add On- LAB Urgent
Tests Added?: direct bilirubin
Abnormal Lab Results
12/06/24
12:28
WBC 4.3 L 10^3/uL
(4.8-10.8)
RBC 3.37 L 10^6/uL
(4.20-5.40)
Hct 34.4 L %
(37.0-47.0)
MCV 102.1 H fL
(81.0-99.0)
MCH 37.1 H pg
(27.0-31.0)
Absolute Lymphs (auto) 0.8 L 10^3/uL
(1.2-3.4)
Lymphocytes % 18.5 L %
(20.5-51.1)
Creatinine 0.5 L mg/dL
(0.6-1.0)
Glucose 102 H mg/dl
(70-99)
Total Bilirubin 3.2 H mg/dl
(0.2-1.3)
Direct Bilirubin 1.2 H mg/dl
(0.0-0.4)
AST 281 H U/L
(14-36)
ALT 111 H U/L
(0-35)
Alkaline Phosphatase 132 H U/L
(38-126)
12/06/24 12:28
12/06/24 12:28
Vital Signs
Initial and Last Documented VS:
Initial Vital Signs
Temp Pulse Resp BP Pulse Ox
98.4 F 64 16 147/98 98
12/06/24 09:45 12/06/24 09:45 12/06/24 09:45 12/06/24 09:45 12/06/24 09:45
Last Documented Vital Signs
Temp Pulse Resp BP Pulse Ox
98.4 F 65 18 114/71 98
12/06/24 09:45 12/06/24 12:38 12/06/24 12:38 12/06/24 17:01 12/06/24 17:01
*Critical Care Note
Total Time (30-74mins, 75-104mins- exclusive of procedures): Not Applicable
Update Note
Update Note:
54-year-old female with history of vertigo for the past 11 months ever since a concussion presents to the emergency department for evaluation of a flare-up of her vertigo associated with intractable nausea and vomiting that started this morning.
Patient has been under more stress lately as her brother and she had his yesterday and today. On arrival, patient is mildly hypertensive, afebrile. On exam, patient is tearful, actively retching, but in no acute distress
otherwise with a nonfocal neurological exam. Labs were obtained while patient was in the waiting room as she does have a history of hypokalemia. Patient's electrolytes are within normal normal limits however she does have an elevated T. bili, D
bili, along with a transaminitis. Patient has had elevations of these values in the past but they are greater than they have ever been. Case discussed with ED attending, will obtain a right upper quadrant ultrasound. Additionally, given the
patient's debilitating vertigo, will check a CTA of the head and neck to rule out other pathology that may be contributing to the patient's symptoms/evaluate for a primary vertigo. In the meantime, will provide the patient with IV fluids, Reglan,
Benadryl, and reassess.
Right upper quadrant ultrasound demonstrates no abnormality to account for the patient's laboratory values today. CT angiography demonstrates no abnormality to account for the patient's ongoing dizziness/vertigo. On reevaluation, the patient
states that she is hungry and feels significantly improved. I spoke with the patient and her at length about disposition. Patient would like to go home which I feel is appropriate. I encouraged the patient to follow-up closely with her
primary care provider for further investigation of her transaminitis, elevated T. bili and elevated T. bili. I also encouraged her to follow-up in regards to her ongoing vertigo. She says that she plans to follow-up with ENT and neurology.
Patient educated on return precautions, she expressed understanding of the plan and agreed.
ED Attending Note
-
Portions of this chart may have been created with voice recognition software.� Occasional wrong word or��sound alike� substitutions may have occurred due to the inherent limitations of voice recognition software.
Discharge Plan
Departure
Patient Disposition: Home (Routine Discharge)
Date of Disposition: 12/06/24
Time of Disposition: 16:51
Patient with high blood pressure during this ER visit?: Yes
Condition: Good
Covid-19: Not Applicable
Discharge Problem:
Vertigo, Nausea and vomiting, Elevated bilirubin, Transaminitis
Instructions: Vertigo (a Type of Dizziness) (DC), Dizziness
Prescriptions:
No Action
atorvastatin 10 mg Tablet
10 mg PO DAILY
losartan 25 mg Tablet
25 mg PO DAILY
meclizine 25 mg Tablet
25 mg PO Q8HPRN PRN (Reason: dizziness) 30 Days Qty: 30 0RF
ondansetron 4 mg Tablet,Disintegrating
4 mg PO BIDPRN PRN (Reason: nausea/vomiting) Qty: 10 0RF
diazepam [Valium] 5 mg tablet
5 mg PO BID PRN (Reason: dizziness) Qty: 14 0RF
Referrals:
Holly Painter DO [Family Provider, Family Practice]
Activity Restrictions/Additional Instructions:
You were seen in the emergency department for evaluation of dizziness associated with nausea and vomiting. While you were in the emergency department, you had labs which demonstrated an elevated total and direct bilirubin along with elevated liver
function tests. You had an ultrasound which showed no abnormality to explain these findings. We do recommend following up closely with your primary care provider for further evaluation of these laboratory abnormalities. The remainder of your
blood work did not show any dangerous abnormalities. You had a CT angiography of your head and neck which shows no cause of your dizziness today. It is important to get plenty of rest and drink plenty of fluids in small sips. You may continue
taking your meclizine and ondansetron as previously prescribed if needed for your symptoms. We recommend following up closely with your primary care provider. It may also be beneficial to follow-up with an ENT and/or neurologist for definitive
diagnosis and treatment. Please return to the emergency department if you develop severe headache, inability to walk safely, persistent vomiting, fever greater than 100.4 �F, or for any other worsening or concerning symptoms.
Interventions
Interventions:
*Risk Screen - Suicide Last Done: 12/06/24 09:45
*General Assessment Last Done: 12/06/24 17:01
*Neglect/Abuse Screening Last Done: 12/06/24 09:45
*ED- Fall Risk Assessment Last Done: 12/06/24 17:01
*ED COVID-19 Vaccine History Last Done: 12/06/24 17:01
*Nursing Disposition Last Done: 12/06/24 17:20
ED- Neurological Assessment Last Done: 12/06/24 11:55
ED- Cardiac Assessment Last Done: 12/06/24 11:55
ED Swallowing Screen Last Done: 12/06/24 14:21
Discharge Date and Time
Discharge Date/Time: 12/06/24 17:27
Print Language: ARMENIAN
[2024-12-06 14:41] LABS: Direct Bilirubin 1.2 mg/dl (0.0-0.4)
[2024-12-06 15:53] VITALS: BP 132/72; PULSE 65
[2024-12-06 17:01] VITALS: BP 114/71
== END 2024-12-06 17:27 | disposition home or self-care (01) ==
LOC: EMR 09:39
PROVIDERS: Physician Assistant Medical; EMERGENCY PHYSICIAN Student in an Organized Health Care Education/Training Program; FAMILY PHYSICIAN Family Medicine
DX: R42 Dizziness and giddiness (principal); R11.2 Nausea with vomiting, unspecified; R74.01 Elevation of levels of liver transaminase levels; E80.7 Disorder of bilirubin metabolism, unspecified; I10 Essential (primary) hypertension; E78.5 Hyperlipidemia, unspecified; I71.20 Thoracic aortic aneurysm, without rupture, unspecified
CPT/HCPCS: 99285; 96374; 96375 ×2; 96361; 70496; 70498; 76700; 80053; 82248; 85025; 93005; Q9967

== ENCOUNTER 2024-12-13 11:11 | Emergency (ER) | payer BC, SELFPAY ==
[2024-12-13 11:11] VITALS: BMI 23.8
[2024-12-13 11:15] VITALS: BP 132/86
--- NOTE | 2024-12-13 12:23 | ED.GENMED ---
History of Present Illness
General
Chief Complaint: Crisis Evaluation
Source: patient and spouse
Exam Limitations: none
Time Seen by Provider: 12/13/24 11:37
History of Present Illness
History of Present Illness:
Patient presents to ED for an evaluation requesting to speak with [facility] secondary to ongoing depression, for which she is drinking alcohol as coping mechanism. Denies fever or chills. Denies nausea or vomiting. Denies abdominal
pain. Denies headache. Denies chest pain or shortness of breath. Denies use of any other illicit medications.
Past History
Past History
ED Past Medical History: Psychiatric and Other (Aortic regurgitation, rheumatoid arthritis, thoracic aortic aneurym 4.5 cm)
ED Past Surgical History: None
Social History
Tobacco: Non-smoker
Alcohol: Daily (2 whiskey drinks daily)
Drug: None
Personal:
Living: with family
Employment: Employed
Review of Systems
Review of Systems
Allergies reviewed?: Yes
All Other Systems: ROS reviewed and negative except as documented in HPI and ROS
Constitutional: Reports no symptoms
Cardiac: Reports no symptoms
ABD/GI: Reports no symptoms
Musculoskeletal: Reports no symptoms
Skin: Reports no symptoms
Neurological: Reports no symptoms
Psychiatric: Reports depression
Phy Exam
Physical Exam
Physical Exam:
Physical Exam
General: mild distress, not acutely ill. afebrile
Head: nc/at. eomi
Neck: supple. no meningeal signs.
Heart: s1/s2 regular rate and rhythm
Lungs: no acute respiratory distress. clear bilaterally
Abdomen: normal bowel sounds. not tender.
Neuro: alert and oriented x 3. no focal neurological deficits
Skin: no rash
Psychiatric: well kept. interactive and cooperative. tearful
Extremities: no edema. no calf tenderness.
Course
Orders/Labs/Results
Orders:
Orders
12/13/24 12:17
Crisis Consult Urgent
Reason for Consult: depression with suicidal ideation
12/13/24 12:19
Electrocardiogram (*1) Urgent
Reason for Study: QTc Monitoring
EKG- Treatment ONCE
12/13/24 12:23
0.9% Sodium Chloride 1000 ml [Nss] 1,000 ml IV BOLUS
Lorazepam [Ativan] 1 mg PO NOW STA
Test Result ONCE
12/13/24 12:48
Alcohol Urgent
Complete Blood Count/No Diff Urgent
Comprehensive Metabolic Panel Urgent
HCG, Serum Qualitative Screen Urgent
Magnesium Urgent
TSH Urgent
12/13/24 13:43
Potassium Chloride [KCl] 40 meq PO NOW STA
12/13/24 14:17
Fentanyl, Urine Urgent
Urine Drug Abuse Screen Urgent
Date Specimen was Collected: 12/13/24
Time Specimen was Collected: 12:26
Abnormal Lab Results
12/13/24 12/13/24
12:48 14:17
WBC 2.6 L 10^3/uL
(4.8-10.8)
RBC 3.28 L 10^6/uL
(4.20-5.40)
Hct 34.3 L %
(37.0-47.0)
MCV 104.6 H fL
(81.0-99.0)
MCH 37.8 H pg
(27.0-31.0)
Sodium 146 H mmol/L
(135-145)
Potassium 2.9 L mmol/L
(3.5-5.1)
Carbon Dioxide 38 H mmol/L
(22-30)
Glucose 122 H mg/dl
(70-99)
AST 254 H U/L
(14-36)
ALT 102 H U/L
(0-35)
TSH 7.14 H uIU/ml
(0.47-4.68)
U Benzodiazepines Scrn Positive H
(Negative)
12/13/24 12:48
12/13/24 12:48
Vital Signs
Initial and Last Documented VS:
Initial Vital Signs
Temp Pulse Resp BP Pulse Ox
98.0 F 94 20 132/86 98
12/13/24 11:15 12/13/24 11:15 12/13/24 11:15 12/13/24 11:15 12/13/24 11:15
Last Documented Vital Signs
Temp Pulse Resp BP Pulse Ox
98.0 F 84 18 116/78 98
12/13/24 11:15 12/13/24 16:47 12/13/24 16:47 12/13/24 16:47 12/13/24 16:47
MDM/Problems Addressed
MDM/Problems Addressed:
Patient with hypokalemia and mildly elevated LFTs, consistent with likely dehydration from recent alcohol use. Potassium repleted. Patient will be transferred to inpatient facility for further evaluation treatment. Patient will be advised to
repeat blood work upon discharge with her primary care physician. Patient and spouse given copy of today's blood work. Patient is otherwise medically cleared and remains hemodynamically stable.
*EKG
Interpreted by ED Provider?: Yes
EKG Intrepretation Date: 12/13/24
Heart Rate: 74
Rate: normal
Rhythm: sinus
Notus: left axis deviation
Interval: normal interval
*Critical Care Note
Total Time (30-74mins, 75-104mins- exclusive of procedures): Not Applicable
ED Attending Note
-
Portions of this chart may have been created with voice recognition software.� Occasional wrong word or��sound alike� substitutions may have occurred due to the inherent limitations of voice recognition software.
Discharge Plan
Departure
Patient Disposition: Psych Facility
Date of Disposition: 12/13/24
Time of Disposition: 14:19
Discharge Problem:
Depression, Acute hypokalemia, Abnormal LFTs (liver function tests)
Prescriptions:
No Action
atorvastatin 10 mg Tablet
10 mg PO DAILY
losartan 25 mg Tablet
25 mg PO DAILY
meclizine 25 mg Tablet
25 mg PO Q8HPRN PRN (Reason: dizziness) 30 Days Qty: 30 0RF
ondansetron 4 mg Tablet,Disintegrating
4 mg PO BIDPRN PRN (Reason: nausea/vomiting) Qty: 10 0RF
diazepam [Valium] 5 mg tablet
5 mg PO BID PRN (Reason: dizziness) Qty: 14 0RF
Referrals:
Holly Painter DO [Family Provider, Family Practice]
Interventions
Interventions:
*Risk Screen - Suicide Last Done: 12/13/24 11:15
*General Assessment Last Done: 12/13/24 11:15
*Neglect/Abuse Screening Last Done: 12/13/24 11:15
*Nursing Disposition Last Done: 12/13/24 16:58
ED-Psychological Assessment Last Done: 12/13/24 13:00
Discharge Date and Time
Discharge Date/Time: 12/13/24 16:58
Print Language: MAORI
[2024-12-13] MEDS: ATIVAN 1 MG PO (12:41)
[2024-12-13] MEDS: NSS 1000 IV (12:41)
[2024-12-13 12:50] VITALS: BP 121/78
[2024-12-13 12:56] LABS: Hematocrit 34.3 % (37.0-47.0); Hemoglobin 12.4 g/dL (12.0-16.0); Mean Corp Hgb Conc. 36.2 g/dL (33.0-37.0); Mean Corpuscular Hgb 37.8 pg (27.0-31.0); Mean Corpuscular Volume 104.6 fL (81.0-99.0); Platelet Count 227 10^3/uL (130-400); Red Blood Cell Count 3.28 10^6/uL (4.20-5.40); White Blood Cell Count 2.6 10^3/uL (4.8-10.8)
[2024-12-13 13:18] LABS: HCG, Serum Qualitative Screen Negative
[2024-12-13 13:24] LABS: ALT (SGPT) 102 U/L (0-35); AST (SGOT) 254 U/L (14-36); Albumin 4.2 g/dl (3.5-5.0); Alkaline Phosphatase 123 U/L (38-126); Blood Urea Nitrogen 8 mg/dl (7-17); Calcium 8.6 mg/dl (8.4-10.2); Carbon Dioxide 38 mmol/L (22-30); Chloride 98 mmol/L (98-107); Glucose 122 mg/dl (70-99); Magnesium 1.7 mg/dl (1.6-2.3); Potassium 2.9 mmol/L (3.5-5.1); Sodium 146 mmol/L (135-145); Total Bilirubin 0.8 mg/dl (0.2-1.3); Total Protein 7.4 g/dl (6.3-8.2); eGFR > 60.00
[2024-12-13 13:46] LABS: Alcohol 319 mg/dl
[2024-12-13] MEDS: KCL 40 MEQ PO (14:16)
[2024-12-13 14:20] LABS: TSH 7.14 uIU/ml (0.47-4.68)
[2024-12-13 14:37] LABS: Amphetamines Negative (Negative); Barbiturates Negative (Negative); Benzodiazepines Positive (Negative); Buprenorphine Negative (Negative); Cocaine Negative (Negative); Marijuana Negative (Negative); Methadone Negative (Negative); Methamphetamines Negative (Negative); Opiates Negative (Negative); Phencyclidine Negative (Negative); Tricyclic Antidepressants Negative (Negative)
[2024-12-13 15:10] LABS: Fentanyl, Urine Negative (Negative)
[2024-12-13 16:47] VITALS: BP 116/78
== END 2024-12-13 16:58 ==
LOC: EMR 11:11
PROVIDERS: EMERGENCY PHYSICIAN Emergency Medicine; FAMILY PHYSICIAN Family Medicine
DX: F32.A Depression, unspecified (principal); E87.6 Hypokalemia; M06.9 Rheumatoid arthritis, unspecified; R79.89 Other specified abnormal findings of blood chemistry
CPT/HCPCS: 96360; 99285; 80053; 80306; 80307; 82077; 83735; 84443; 84703; 85027; 93005

== ENCOUNTER 2025-03-02 16:25 | Emergency (ER) | payer BC, SELFPAY ==
[2025-03-02 16:28] VITALS: BP 102/73
[2025-03-02 17:05] LABS: Urine Character Clear (Clear)
[2025-03-02 17:06] LABS: Hematocrit 32.3 % (37.0-47.0); Hemoglobin 11.8 g/dL (12.0-16.0); Mean Corp Hgb Conc. 36.5 g/dL (33.0-37.0); Mean Corpuscular Volume 103.5 fL (81.0-99.0); Nucleated Red Blood Cells % 0 %; Platelet Count 171 10^3/uL (130-400); Red Cell Dist. Width 14.3 % (11.5-14.5)
[2025-03-02 17:20] LABS: ALT (SGPT) 69 U/L (0-35); AST (SGOT) 256 U/L (14-36); Albumin 4.0 g/dl (3.5-5.0); Alkaline Phosphatase 179 U/L (38-126); Blood Urea Nitrogen 9 mg/dl (7-17); Calcium 8.1 mg/dl (8.4-10.2); Carbon Dioxide 32 mmol/L (22-30); Chloride 82 mmol/L (98-107); Glucose 114 mg/dl (70-99); Potassium 3.1 mmol/L (3.5-5.1); Sodium 128 mmol/L (135-145); Total Protein 7.8 g/dl (6.3-8.2); eGFR > 60.00
[2025-03-02 19:25] VITALS: BMI 24.7
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
[2025-03-02 19:53] LABS: Magnesium 1.5 mg/dl (1.6-2.3)
[2025-03-02] MEDS: TYLENOL 650 MG PO (20:53)
[2025-03-02] MEDS: KCL 40 MEQ PO (21:21)
[2025-03-02 21:23] VITALS: BP 99/64
[2025-03-02 21:32] LABS: INR 1.03; PT 14.0 Sec (11.4-14.6)
[2025-03-02 21:33] LABS: Ammonia 23 umol/L (9-30)
[2025-03-02] MEDS: MULTIVITAMIN 1015 MG IV (22:25)
[2025-03-02] MEDS: MULTIVITAMIN 1015 GRAMS IV (22:25)
[2025-03-02] MEDS: MULTIVITAMIN 1015 ML IV (22:25)
[2025-03-02 22:30] VITALS: BP 105/71
== END 2025-03-03 03:36 | disposition home or self-care (01) ==
LOC: EMR 16:25
PROVIDERS: EMERGENCY PHYSICIAN Emergency Medicine; FAMILY PHYSICIAN Family Medicine
DX: F10.229 Alcohol dependence with intoxication, unspecified (principal); I35.1 Nonrheumatic aortic (valve) insufficiency; I71.21 Aneurysm of the ascending aorta, without rupture; M06.9 Rheumatoid arthritis, unspecified; Z63.4 Disappearance and death of family member
CPT/HCPCS: 99284; 96365; 96366 ×4; 70450; 80053; 81003; 81015; 82077; 82140; 83735; 85025; 85610; 87086; 87147; 87186

== ENCOUNTER 2025-05-11 11:56 | Emergency (ER) | payer BC, SELFPAY ==
[2025-05-11 12:06] VITALS: BP 136/83
[2025-05-11 12:16] VITALS: BMI 23.8
[2025-05-11] MEDS: NSS 1000 IV (12:26)
[2025-05-11 12:33] LABS: Hematocrit 38.1 % (37.0-47.0); Hemoglobin 13.5 g/dL (12.0-16.0); Mean Corp Hgb Conc. 35.4 g/dL (33.0-37.0); Mean Corpuscular Volume 101.9 fL (81.0-99.0); Nucleated Red Blood Cells % 0 %; Platelet Count 168 10^3/uL (130-400); Red Cell Dist. Width 13.3 % (11.5-14.5)
[2025-05-11 12:42] LABS: ALT (SGPT) 36 U/L (0-35); AST (SGOT) 83 U/L (14-36); Albumin 4.4 g/dl (3.5-5.0); Alkaline Phosphatase 107 U/L (38-126); Blood Urea Nitrogen 5 mg/dl (7-17); Calcium 9.0 mg/dl (8.4-10.2); Carbon Dioxide 29 mmol/L (22-30); Chloride 92 mmol/L (98-107); Estimated Creatinine Clearance 89 ml/min; Glucose 135 mg/dl (70-99); Lipase 59 U/L (23-300); Potassium 2.9 mmol/L (3.5-5.1); Sodium 130 mmol/L (135-145); Total Protein 8.1 g/dl (6.3-8.2); eGFR > 60.00
[2025-05-11 12:44] LABS: Urine Character Clear (Clear)
--- NOTE | 2025-05-11 13:02 | ED.GENMED ---
History of Present Illness
General
Chief Complaint: Abdominal Pain
Time Seen by Provider: 05/11/25 13:02
History of Present Illness
History of Present Illness:
FOCUSED PAST MEDICAL HISTORY
- High blood pressure
REVIEW OF OLD RECORDS
- The patient was seen here in February with alcohol intoxication
Note:
CHIEF COMPLAINT(S)
Abdominal pain and history of vomiting and diarrhea.
HISTORY OF PRESENT ILLNESS
The patient is a 54-year-old male presenting with diffuse abdominal pain. Four days ago, he experienced 24 hours of diarrhea and vomiting. The patient initially suspected a urinary tract infection and attempted to take ibuprofen for three days but
was unable to retain it due to emesis. The diarrhea has since resolved. However, the patient now reports experiencing severe abdominal tenderness and sensation as if having the flu, albeit without nausea at present. He notes a history of kidney
stones, previously identified during a past emergency department visit, but mentions no current renal colic symptoms. Pain localization is worse on the left flank, and he recalls falling out of bed on the same side but denies any noticeable bruising
in that area. The patient has previously undergone appendectomy and tubal surgery, and reports infrequent bowel movements followed by severe nausea.
During examination, there was noticeable tenderness below the kidney area upon palpation. Diagnostic tests reveal notably low potassium and mildly low sodium levels. The patient�s main concern is alleviating his current abdominal pain.
PAST SURGICAL HISTORY
History of appendectomy and tubal surgery.
PHYSICAL EXAM
General: Alert, no acute distress.
Skin: Warm, dry.
Head: Normocephalic, atraumatic.
Neck: Supple, trachea midline.
Eye Ears, nose, mouth and throat: Oral mucosa moist.
Cardiovascular: Normal peripheral perfusion, No edema.
Respiratory: Respirations are non-labored.
Gastrointestinal : Mild abdominal tenderness more so on the left
Back: Normal alignment. Some decreased active range of motion due to pain
Musculoskeletal: Normal ROM, normal strength.
Neurological: Alert and oriented to person, place, time, and situation, No focal neurological deficit observed.
Psychiatric: Cooperative, appropriate mood & affect.
PLAN
1. Order a CT scan of the abdomen to rule out significant pathology such as bowel obstruction or worsening kidney stones.
2. Administer oral potassium supplements to address hypokalemia.
3. Provide ketorolac (Toradol), a non-narcotic anti-inflammatory medication, for pain management.
4. Maintain hydration with IV fluids as needed.
DIFFERENTIAL DIAGNOSIS
The Differential Diagnosis includes, in no particular order and is not limited to:
1. Bowel obstruction
2. Kidney stones
3. Acute gastroenteritis
4. Peptic ulcer disease
5. Biliary colic
6. Pancreatitis
7. Diverticulitis
8. Gallbladder disease
9. Musculoskeletal pain
10. Viral syndrome
LABS
- White count 6.1, hemoglobin 13.5, potassium 2.9, creatinine 0.5, minimal transaminase elevation and total bili is 1.8
UPDATE
-SUMMARY OF ENCOUNTER
The patient, a 54-year-old male, presented to the emergency department with complaints of severe abdominal pain following a previous episode of diarrhea and vomiting. Upon examination and lab tests, he was found to have low potassium levels.
Treatment in the emergency department involved administration of potassium supplements to address the hypokalemia and providing pain management with ketorolac. The patients liver function tests showed improvement compared to past results. Further
outpatient evaluation by a hearing therapy director was deemed reasonable to investigate the underlying cause of the abdominal pain.
EMERGENCY TREATMENTS ADMINISTERED
Potassium supplements and ketorolac were administered to address hypokalemia and provide pain relief, respectively.
PLAN
1. Recommend follow-up with a hearing therapy director for further evaluation of abdominal pain.
2. Advise oral intake of potassium-rich foods such as bananas, potatoes, and tomatoes.
3. Continue pain management with ibuprofen as needed if the patient responds well to treatment with ketorolac.
4. Encourage recheck of potassium levels as outpatient care continues.
INDEPENDENT REVIEW OF LABS AND INTERPRETATION OF TESTS
My independent review indicates the patient has low potassium levels. Liver function tests are improved compared to prior results.
PATIENT EDUCATION AND COUNSELING
The patient was advised to incorporate potassium-rich foods into his diet and to continue potassium supplementation as prescribed. He was also informed on the importance of follow-up with a hearing therapy director for further evaluation and management of
his abdominal pain.
MEDICATION RECONCILIATION
- Potassium supplements administered in the emergency department.
- Ketorolac administered for pain management.
- Recommended ibuprofen for ongoing pain relief as needed.
MEDICAL DECISION MAKING
-Complexity of Data Reviewed: Chronic conditions affecting care include history of kidney stones and past appendectomy. The differential diagnosis includes bowel obstruction, kidney stones, acute gastroenteritis, peptic ulcer disease, biliary colic,
pancreatitis, diverticulitis, gallbladder disease, musculoskeletal pain, and viral syndrome.
-Data:
Category 1
My independent interpretation of laboratory tests noted low potassium levels. Liver function tests are improved compared to past results.
-Risk: Consideration of Admission/Observation: Escalation of care including admission/observation was considered given the complexity and risk of the patients presenting complaint, exam findings, and/or his underlying comorbidities. However,
ultimately it was felt the patient is safe for outpatient management with close follow-up. Reasoning: Work-up reassuring, does not reveal any acute life/organ-threatening processes, patients symptoms well-controlled upon reevaluation, reexamination
is reassuring, vitals are stable, patient agreeable with discharge, reliable for follow-up.
DIAGNOSIS
- Hypokalemia (E87.6)
- Abdominal pain, unspecified (R10.9)
- Considered CT however the patient overall feels markedly improved after Toradol and just wants to go home
- She has had several similar episodes in the past
- LFTs are overall improving and she states that she no longer drinks alcohol
Past History
Past History
ED Past Medical History: Psychiatric and Other (Aortic regurgitation, rheumatoid arthritis, thoracic aortic aneurym 4.5 cm)
ED Past Surgical History: None
Social History
Tobacco: Non-smoker
Alcohol: Daily (2 whiskey drinks daily)
Drug: None
Personal:
Living: with family
Employment: Employed
Phy Exam
Physical Exam
Physical Exam:
See HPI
Course
Orders/Labs/Results
Orders:
Orders
05/11/25 12:14
IV Insert/Care/Rem.- Treatment PRN
05/11/25 12:20
Complete Blood Count/With Diff Urgent
Comprehensive Metabolic Panel Urgent
Lipase Urgent
Urinalysis Reflex To Culture Urgent
Date Specimen was Collected: 05/11/25
Time Specimen was Collected: 12:14
Urine Microscopic Reflex Cult Urgent
05/11/25 12:26
0.9% Sodium Chloride 1000 ml [Nss] 1,000 ml IV BOLUS
05/11/25 13:15
Potassium Chloride [KCl] 40 meq PO NOW STA
05/11/25 13:16
Ketorolac [Toradol] 15 mg IV NOW STA
Abnormal Lab Results
05/11/25
12:20
RBC 3.74 L 10^6/uL
(4.20-5.40)
MCV 101.9 H fL
(81.0-99.0)
MCH 36.1 H pg
(27.0-31.0)
Absolute Lymphs (auto) 1.1 L 10^3/uL
(1.2-3.4)
Lymphocytes % 17.3 L %
(20.5-51.1)
Sodium 130 L mmol/L
(135-145)
Potassium 2.9 L mmol/L
(3.5-5.1)
Chloride 92 L mmol/L
(98-107)
BUN 5 L mg/dl
(7-17)
Creatinine 0.5 L mg/dL
(0.6-1.0)
Glucose 135 H mg/dl
(70-99)
Total Bilirubin 1.8 H mg/dl
(0.2-1.3)
AST 83 H U/L
(14-36)
ALT 36 H U/L
(0-35)
Urine Ketones 1+ A
(Negative)
Urine Bacteria (Reflex) Few A
(Negative)
Urine Albumin (Reflex) 1+ A
(Neg - Trace)
05/11/25 12:20
05/11/25 12:20
Vital Signs
Initial and Last Documented VS:
Initial Vital Signs
Temp Pulse Resp BP Pulse Ox
36.8 C 80 16 136/83 97
05/11/25 12:06 05/11/25 12:06 05/11/25 12:06 05/11/25 12:06 05/11/25 12:06
Last Documented Vital Signs
Temp Pulse Resp BP Pulse Ox
36.8 C 80 16 136/83 97
05/11/25 12:06 05/11/25 12:06 05/11/25 12:06 05/11/25 12:06 05/11/25 13:04
*Pulse Oximetry
SaO2: 97
Oxygen Mode of Delivery: Room air
Patient hypoxic: no
*Critical Care Note
Total Time (30-74mins, 75-104mins- exclusive of procedures): Not Applicable
ED Attending Note
-
Portions of this chart may have been created with voice recognition software.� Occasional wrong word or��sound alike� substitutions may have occurred due to the inherent limitations of voice recognition software.
Discharge Plan
Departure
Patient Disposition: Home (Routine Discharge)
Date of Disposition: 05/11/25
Time of Disposition: 13:54
Patient with high blood pressure during this ER visit?: Yes
Discharge Problem:
Abdominal pain
Instructions: Abdominal Pain, BLOOD PRESSURE
Prescriptions:
No Action
losartan 25 mg Tablet
25 mg PO DAILY
meclizine 25 mg Tablet
25 mg PO Q8HPRN PRN (Reason: dizziness) 30 Days Qty: 30 0RF
ondansetron 4 mg Tablet,Disintegrating
4 mg PO BIDPRN PRN (Reason: nausea/vomiting) Qty: 10 0RF
diazepam [Valium] 5 mg tablet
5 mg PO BID PRN (Reason: dizziness) Qty: 14 0RF
diazepam [Valium] 10 mg tablet
10 mg PO TID Qty: 10 0RF
Rx Instructions:
Take q8 hours for day 1 and day 2, take q12 hours for day 3, take qhs for day 4 and day 5, then stop.
Referrals:
Jarod Medina MD [Family Provider, [facility]]
Activity Restrictions/Additional Instructions:
The cause of your symptoms is unclear. Your white blood cell count and hemoglobin are both normal. Your potassium level is rather low at 2.9 and we gave you oral potassium supplementation. Your liver numbers are overall improved compared to
prior. Your lipase level (pancreas number) is normal. There is no clear sign of urinary tract infection. We gave you IV fluid. Return here if worse or other concerns. Follow-up with your doctors as an outpatient.
Interventions
Interventions:
*Risk Screen - Suicide Last Done: 05/11/25 12:16
*General Assessment Last Done: 05/11/25 12:16
*Neglect/Abuse Screening Last Done: 05/11/25 12:16
*ED- Fall Risk Assessment Last Done: 05/11/25 12:16
*ED COVID-19 Vaccine History Last Done: 05/11/25 12:16
*ED Influenza Vaccine History Last Done: 05/11/25 12:16
FV-Zgessa-Rvpeshraok Assessment Last Done: 05/11/25 13:19
Discharge Date and Time
Print Language: NEPALI
[2025-05-11 13:04] LABS: Urine Squamous Cell 16-20 /LPF (Few)
[2025-05-11 13:05] LABS: Urine Red Blood Cell 0-2 /HPF (0-2)
[2025-05-11] MEDS: KCL 40 MEQ PO (13:20)
[2025-05-11] MEDS: TORADOL 15 MG IV (13:20)
--- NOTE | 2025-05-11 14:02 | EDRN ---
Patient reports toradol helped with pain. she is not wanting the CT, informed the provider who went in to speak with patient, she will be discharged home.
[2025-05-11 14:03] VITALS: BP 134/84
== END 2025-05-11 14:25 | disposition home or self-care (01) ==
LOC: EMR 11:56
PROVIDERS: EMERGENCY PHYSICIAN Emergency Medicine; FAMILY PHYSICIAN Family Medicine
DX: R10.A1 Flank pain, right side (principal); E87.6 Hypokalemia; E87.1 Hypo-osmolality and hyponatremia; I10 Essential (primary) hypertension; I35.1 Nonrheumatic aortic (valve) insufficiency; I71.20 Thoracic aortic aneurysm, without rupture, unspecified; M06.9 Rheumatoid arthritis, unspecified
CPT/HCPCS: 99284; 96374; 96361; 80053; 81003; 81015; 83690; 85025